=== PATIENT | male | born 1930 | race Caucasian/White ===

== ENCOUNTER 2017-07-26 13:38 | Inpatient (IN) | payer MEDICARE ==
[2017-07-26 14:57] LABS: #Lymphocytes 1.1 thou/uL (1.20-3.40); #Neutrophils 6.5 thou/uL (1.40-6.50); %Basophils 0.4 % (0.0-1.0); %Eosinophils 0.2 % (0.0-10.0); %Lymphocytes 12.5 % (21.0-51.0); %Monocytes 11.8 % (0.0-10.0); Hematocrit 39.3 % (42.0-52.0); Mean Platelet Volume 8.6 fL (7.4-10.4); Red Blood Cell (RBC) Count 4.11 mill/uL (4.70-6.10); White Blood Cell (WBC) Count 8.7 thou/uL (4.8-10.8)
[2017-07-26 15:09] LABS: ALT (SGPT) 11 U/L (8-55); AST (SGOT) 24 U/L (5-34); Alkaline Phosphatase 92 U/L (40-150); Anion Gap 15 mmol/L (10-20); BUN (Urea Nitrogen) 25 mg/dL (8.4-25.7); Bilirubin, Total 0.7 mg/dL (0.2-1.2); Calc. Creatinine Clearance 0 mL/min (70-130); Calcium 9.4 mg/dL (7.8-10.44); Carbon Dioxide 23 mmol/L (23-31); Chloride 94 mmol/L (98-107); Estimated GFR-MDRD 64; Globulin 3.4 g/dL (2.4-3.5); Protein, Total 7.1 g/dL (5.8-8.1)
[2017-07-26 15:14] LABS: Troponin I 0.112 ng/mL (< 0.028)
--- NOTE | 2017-07-26 15:22 | RAD ---
CHEST ONE VIEW: History: Dyspnea. Comparison: None. FINDINGS: The lungs are slightly hyperinflated. There are bilateral pleural effusions, larger on the left. Elev ated left hemidiaphragm. No pneumothorax. Heart size is enlarged. IMPRESSION: Layering effusions and mild cardiomegaly. POS: [facility]
[2017-07-26] MEDS ORDERED: Furosemide 40 MG/4 ML VIAL ONE (16:16)
[2017-07-26 16:56] LABS: Magnesium 1.7 mg/dL (1.6-2.6); Phosphorus 2.7 mg/dL (2.3-4.7)
[2017-07-26 18:29] LABS: Troponin I 0.174 ng/mL (< 0.028)
[2017-07-26] MEDS ORDERED: Ondansetron HCl/PF 4 MG/2 ML Vial IVP PRN ×2 (18:43→23:15)
[2017-07-26] MEDS ORDERED: Acetaminophen 325 MG TAB PO PRN ×2 (18:43→23:15)
[2017-07-26] MEDS ORDERED: Ondansetron ODT 4 MG TAB SL PRN (18:43)
--- NOTE | 2017-07-26 19:42 | ULT ---
BILATERAL LOWER EXTREMITY VENOUS DOPPLER 07/26/17 PROVIDED CLINICAL HISTORY: Lower extremity edema. FINDINGS: Lane scale and color doppler sonography with spectral analysis was performed of the bilateral common femoral, femoral, popliteal, posterior tibial, greater saphenous and profunda femoral veins, demonstr ating a normal sonographic appearance to each. Fluid collection within the left popliteal fossa measu ring about 4.9 cm is most compatible with a Jewell's cyst. IMPRESSION: No sonographic evidence for lower extremity deep venous thrombosis. POS: [facility]
[2017-07-26 19:56] VITALS: BMI 27.9
[2017-07-26 21:41] LABS: Troponin I 0.192 ng/mL (< 0.028)
[2017-07-26] MEDS ORDERED: Calcium Carbonate 500 MG ChewTAB PO PRN (23:15)
[2017-07-26] MEDS ORDERED: Senokot 8.6 MG TAB PO PRN (23:15)
[2017-07-26] MEDS ORDERED: Ondansetron ODT 4 MG TAB PO PRN (23:15)
[2017-07-26] MEDS ORDERED: Nitroglycerin 0.4 MG TAB (25 Tab Bottle) PO PRN (23:25)
[2017-07-27 05:48] LABS: Anion Gap 13 mmol/L (10-20); BUN (Urea Nitrogen) 21 mg/dL (8.4-25.7); Calc. Creatinine Clearance 60 mL/min (70-130); Calcium 9.4 mg/dL (7.8-10.44); Carbon Dioxide 29 mmol/L (23-31); Chloride 91 mmol/L (98-107); Estimated GFR-MDRD 67; Magnesium 1.7 mg/dL (1.6-2.6)
[2017-07-27 05:53] LABS: Troponin I 0.221 ng/mL (< 0.028)
[2017-07-27] MEDS: Furosemide 40 MG/4 ML VIAL SLOW IVP SCH ×2 (06:00→13:58)
[2017-07-27] MEDS: Sodium Chloride 0.9% 10 ML ONE ×2 (08:41→13:58)
[2017-07-27] MEDS: Docusate 100 MG CAP PO SCH ×2 (08:42→20:37)
[2017-07-27] MEDS: Gabapentin 300 MG CAP PO SCH ×2 (08:42→20:37)
[2017-07-27] MEDS: Carvedilol 3.125 MG TAB PO SCH ×2 (08:43→20:37)
--- NOTE | 2017-07-27 08:45 | HP ---
PRIMARY CARE PHYSICIAN: Dr. Heri De REASON FOR ADMISSION/CHIEF COMPLAINT: Sent by PCP for new onset congestive heart failure with fluid retention. CODE STATUS: FULL CODE. SURROGATE DECISION-MAKER: Patient makes his own decisions with the help of his family. Please note that patient was seen and examined on 07/26/2017 at 2330. HISTORY OF PRESENT ILLNESS: The patient is an 86-year-old male with hypertension who presented to [facility] emergency room from his primary care physician's office with the above complaints. The patient has gained approximately 15 pounds over the last 2 months or so. Over the last 2 weeks, he noticed wors ening bilateral lower extremity swelling. He had minimal exertional shortness of breath, without sig nificant orthopnea. He denies any chest pain, palpitations, lightheadedness, dizziness, recent immob ilization, travel, fever, chills or dyspepsia. He denies a recent cardiac workup. In the emergency room, his initial vital signs showed temperature 98.7, respirations 22, pulse of 100 , blood pressure of 113/74 with O2 saturation 92% on room air. His BNP was 2633 with troponins in [facility] indeterminate range at 0.174. He received 40 mg IV Lasix in the emergency room. His chest x-ray s howed layering effusions with mild cardiomegaly. EKG showed sinus tachycardia with first degree AV b lock and nonspecific ST-T wave changes and a right bundle branch block. PAST MEDICAL HISTORY: 1. Hypertension. 2. History of prostate cancer. 3. Degenerative joint disease. PAST SURGICAL HISTORY: 1. Prostatectomy in 1994. 2. Back surgery with spinal stimulator placement. 3. Bunionectomy. ALLERGIES: Patient is allergic to DEMEROL. CURRENT HOME MEDICATIONS: Amlodipine 10 mg daily, aspirin 81 mg daily, fluticasone daily, gabapentin 300 mg b.i.d., lisinopril/HCTZ 20/25 daily, naproxen 500 mg daily. SOCIAL HISTORY: Patient currently lives at home. He is a full code, makes his own decisions with [facility] help of his family. No smoking, alcohol or drug use reported. FAMILY HISTORY: Negative for premature coronary artery disease. REVIEW OF SYSTEMS: The following complete review of systems was negative, unless otherwise mentioned in the HPI or below: Constitutional: Weight loss or gain, ability to conduct usual activities. Skin: Rash, itching. Eyes: Double vision, pain. ENT/Mouth: Nose bleeding, neck stiffness, pain, tenderness. Cardiovascular: Palpitations, dyspnea on exertion, orthopnea. Respiratory: Shortness of breath, wheezing, cough, hemoptysis, fever or night sweats. Gastrointestinal: Poor appetite, abdominal pain, heartburn, nausea, vomiting, constipation, or diarrhea. Genitourinary: Urgency, frequency, dysuria, nocturia. Musculoskeletal: Pain, swelling. Neurologic/Psychiatric: Anxiety, depression. Allergy/Immunologic: Skin rash, bleeding tendency. PHYSICAL EXAMINATION: VITAL SIGNS: As discussed above. GENERAL: An 86-year-old male in no apparent distress. Denies any chest pain or shortness of breath while resting. HEENT: Head is atraumatic, normocephalic, sclerae are anicteric. Moist mucous membrane, no oral les ion. NECK: Supple, no JVD appreciated. No carotid bruit. LUNGS: Lungs were essentially clear to auscultation with minimal rales at bases. HEART: S1, S2 present. Regular rate and rhythm, 2/6 systolic murmur over the mitral area. No heave s or pulsation. ABDOMEN: Soft, nontender, bowel sounds present. EXTREMITIES: 3-4+ edema in bilateral lower extremities up to the knees. No calf tenderness. SKIN: Warm and dry. LYMPH NODES: No palpable lymph nodes in the neck. PERIPHERAL VASCULAR: Radial pulses palpable bilaterally. MUSCULOSKELETAL: No joint swelling or tenderness. SKIN: Warm and dry. LYMPH NODES: No palpable lymph nodes in the neck. LABORATORY FINDINGS: As discussed above. Sodium was 128 with potassium 3.8, chloride 94, bicarbonat e 23, BUN 25, creatinine 1.09, glucose 122. BNP was 2633 with troponin maximum of 0.174. TSH was no rmal. EKG and chest x-ray by my review as discussed above. Bilateral lower extremity Doppler was negative for DVT. IMPRESSION: 1. Bilateral lower extremity swelling with elevated troponin and BNP. These findings are consistent with new onset congestive heart failure exacerbation. 2. Elevated troponins, probably secondary to demand ischemia versus congestive heart failure. 3. Hypertension. 4. History of prostate cancer. 5. Degenerative joint disease on chronic nonsteroidal anti-inflammatory drugs. 6. Hyponatremia, probably secondary to volume overload as well as nonsteroidal anti-inflammatory quinten g use. 7. Chronic anemia. 8. Chronic kidney disease stage 2. 9. Chronic pain syndrome. PLAN: The patient will be monitored on the telemetry unit as inpatient. Echocardiogram will be obta ined. Cardiology will be consulted. Amlodipine and naproxen will be discontinued due to significant lower extremity swelling/volume overload. Fluid restriction. Plan of care was discussed with the patient in detail. He stated understanding. The patient will require 2-3 days for stabilization. Cardiac enzymes will be repeated in the morning . Electrolytes will be monitored on a daily basis.
[2017-07-27] MEDS ORDERED: Aspirin 81 mg Enteric Coated Tablet PO SCH (09:00)
[2017-07-27] MEDS ORDERED: Enoxaparin Sodium 40 MG/0.4 ML SYRINGE SC SCH (09:00)
[2017-07-27] MEDS: Fluticasone Propionate Nasal Spray 16 gm Bottle NASAL SCH (09:47)
[2017-07-27] MEDS: Lisinopril 5 MG TAB PO SCH ×2 (09:48→20:37)
[2017-07-27] MEDS ORDERED: Iopamidol 370 76% 100 ML VIAL ONE ×2 (11:15)
[2017-07-27] MEDS ORDERED: Heparin 10,000 UNITS/1 ML VIAL ONE (12:35)
[2017-07-27] MEDS ORDERED: Verapamil 5 MG/2 ML VIAL ONE (12:35)
[2017-07-27] MEDS ORDERED: Nitroglycerin 100MG/250ML BOT 0 ML ONE (12:35)
[2017-07-27] MEDS ORDERED: Communication Order-Pharmacy FS SCH (13:00)
[2017-07-27] MEDS ORDERED: Sodium Chloride 0.9% 10 ML ONE (13:56)
--- NOTE | 2017-07-27 14:23 | CON ---
DATE OF CONSULTATION: 07/27/2017 REASON FOR CONSULTATION: Heart failure. HISTORY OF PRESENT ILLNESS: Mr. Campa is a pleasant 86-year-old white gentleman, who comes to the [facility] for shortness of breath. He had noticed that he had gained about 15 pounds in the last 2 mon ths without any change in his eating habits and in the last 2 weeks, he notes worsening bilateral low er extremity swelling and shortness of breath when he lay flat, so he decided to come in for evaluati on. On initial workup, he was found to have very elevated BNP, chest x-ray looks clear, but he had s evere edema suggestive of heart failure. An echocardiogram was performed today. I reviewed it and i t shows severely reduced EF. On my evaluation, Mr. Campa denies any chest pain, tightness, or press ure. He admits to shortness of breath mostly when he lays flat, but his biggest concern is swelling from his abdomen down. He already has improved with IV Lasix and he has diuresed and he has lost abo ut 10 pounds already. PAST MEDICAL HISTORY: 1. Hypertension. 2. Prostate cancer. 3. DJD. PAST SURGICAL HISTORY: 1. Prostatectomy. 2. Back surgery and spine stimulator. 3. Bunionectomy. OUTPATIENT MEDICATIONS: 1. Amlodipine 10 mg a day. 2. Aspirin 81 daily. 3. Fluticasone. 4. Gabapentin. 5. Lisinopril/HCTZ 20/25 daily. 6. Naproxen daily. ALLERGIES: DEMEROL. SOCIAL HISTORY: No alcohol, tobacco, or drugs. FAMILY HISTORY: Noncontributory. REVIEW OF SYSTEMS: A 12-point review of systems was done and was negative unless stated in the histo ry of present illness. PHYSICAL EXAMINATION: VITAL SIGNS: Temperature 98.6, pulse 77, respiration rate 20, satting 93% on 2 liters, blood pressur e 100/61. GENERAL: Awake, alert, oriented x3, in no distress. HEENT: Normocephalic, atraumatic. NECK: Supple. LUNGS: Clear. CARDIOVASCULAR: S1 and S2. No S3 or S4. No murmurs or rubs. ABDOMEN: Soft, positive bowel sounds. EXTREMITIES: 3+ edema. SKIN: Warm and dry. LABORATORY WORK: Reviewed. White count of 8.7, hemoglobin 13.1, hematocrit 39, platelet count of 22 7. Chemistries with a sodium of 128 on admission, up to 129. BUN and creatinine normal with GFR of 67. Troponin was 0.17, 0.19, 0.22. Albumin of 3.5. TSH was normal at 0.72 on the lower limits of n ormal. BNP was 2633. Echocardiogram reviewed as above. ASSESSMENT: 1. Severe new onset cardiomyopathy: High concern for ischemic cardiomyopathy given his akinetic ape x and regional motion abnormalities. 2. History of hypertension. PLAN: 1. I agree with beta rosie and LLOYD inhibitor at this time. Continue IV diuresis with 40 IV b.i.d. of Lasix as he is diuresed well with this. 2. We will plan on doing a left heart catheterization on him later today. He is able to lay flat co mfortably. He is feeling better with diuresis. We will most likely need some sort of vascularizatio ns as I think this is ischemic in nature. I spoke with him about the risks and benefits of the proce dure. The risks include, but not limited to stroke, PA, , bleeding and need for blood transfusi ons, vessel injury, need for vessel repair, need for emergency bypass surgery. The patient understan ds and verbalizes understanding of this and agrees to proceed. We have spoken about contrast nephrop athy and allergic reactions. He agrees to proceed. Further recommendations per results of coronary angiogram. Thank you for letting us participate in the care of your patient. We will follow.
--- NOTE | 2017-07-27 19:12 | PDOC.PN ---
- Subjective Encounter Start Date: 07/27/17 Encounter Start Time: 16:00 Patient seen and examined. No new complaints. No overnight events. s/p Cath. No SOB. Leg swelling improving. - Objective Resuscitation Status: Resuscitation Status FULL:Full Resuscitation MAR Reviewed: Yes Vital Signs & Weight: Vital Signs (12 hours) Temp Pulse Pulse Pulse Resp BP BP 07/27/17 15:00 97.5 F L 69 16 07/27/17 13:49 72 18 07/27/17 12:00 66 75 135/72 07/27/17 11:08 98.6 F 77 20 07/27/17 09:48 79 101/67 07/27/17 08:37 98.7 F 73 17 BP BP Pulse Ox Pulse Ox Pulse Ox 07/27/17 15:00 112/72 97 07/27/17 13:49 111/68 95 07/27/17 12:00 104/63 95 95 07/27/17 11:08 100/61 93 L 07/27/17 09:48 07/27/17 08:37 90/55 L 95 Weight Weight 178 lb 5.663 oz I&O: 07/26/17 07/27/17 07/28/17 06:59 06:59 06:59 Intake Total 240 880 Output Total 1275 2200 Balance -1035 -1320 Result Diagrams: 07/26/17 14:40 07/28/17 04:29 Radiology Reviewed by me: No (Echo - EF 20% range) EKG Reviewed by me: Yes (Tele SR) Phys Exam - Physical Examination Constitutional: NAD Respiratory: no wheezing, no rales, no rhonchi symmetrical Cardiovascular: RRR, no rub no heaves/pulsations Gastrointestinal: soft, non-tender, no distention, positive bowel sounds Musculoskeletal: edema present Neurological: non-focal, moves all 4 limbs Psychiatric: normal affect, A&O x 3 Dx/Plan - Plan DVT proph w/lovenox, DVT proph w/SCDs IMPRESSION: 1. New onset systolic congestive heart failure exacerbation. 2. Elevated troponins, probably secondary to demand ischemia versus congestive heart failure. 3. Severe CAD 4. Hypertension. 5. Degenerative joint disease on chronic nonsteroidal anti-inflammatory drugs. 6. Hyponatremia, probably secondary to volume overload as well as nonsteroidal anti-inflammatory drug use. 7. Chronic anemia/Chronic kidney disease stage 2/History of prostate cancer/ Chronic pain syndrome. PLAN: * Cont diuresis - Change IV Lasix dose to 20 mg BID * AM labs * s/p Cath * Cardiology following * Change ASA to 325 mg/d * Cont other meds as below Review of Systems - Medications/Allergies Allergies/Adverse Reactions: Allergies Allergy/AdvReac Type Severity Reaction Status Date / Time meperidine HCl [From Demerol] AdvReac Verified 05/18/16 10:51 Medications: Current Medications Acetaminophen (Tylenol) 650 mg PO Q4H PRN PRN Reason: Headache/Fever or Pain Aspirin (Ecotrin) 81 mg PO DAILY [facility] Last Admin: 07/27/17 08:41 Dose: 81 mg Calcium Carbonate (Tums) 1,000 mg PO Q4H PRN PRN Reason: Heartburn or Indigestion Carvedilol (Coreg) 3.125 mg PO BID [facility] Last Admin: 07/27/17 08:43 Dose: 3.125 mg Docusate Sodium (Colace) 100 mg PO BID [facility] Last Admin: 07/27/17 08:42 Dose: 100 mg Enoxaparin Sodium (Lovenox) 40 mg SC 0900 [facility] Fluticasone Propionate (Flonase Nasal [place]) 0 gm NASAL DAILY [facility] Last Admin: 07/27/17 09:47 Dose: 2 spray Furosemide (Lasix) 40 mg SLOW IVP 0600,1400 [facility] Last Admin: 07/27/17 13:58 Dose: 40 mg Gabapentin (Neurontin) 300 mg PO BID [facility] Last Admin: 07/27/17 08:42 Dose: 300 mg Lisinopril (Zestril) 5 mg PO BID [facility] Last Admin: 07/27/17 09:48 Dose: 5 mg Miscellaneous Information (Communication Order-Pharmacy) 0 each FS ONE [facility] Stop: 07/27/17 23:59 Nitroglycerin (Nitrostat) 0.4 mg PO Q5MIN PRN PRN Reason: Chest Pain Ondansetron HCl (Zofran Odt) 4 mg PO Q6H PRN PRN Reason: Nausea/Vomiting Ondansetron HCl (Zofran) 4 mg IVP Q6H PRN PRN Reason: Nausea/Vomiting Senna (Senokot) 2 tab PO HSPRN PRN PRN Reason: Constipation
[2017-07-28 05:39] LABS: Anion Gap 13 mmol/L (10-20); BUN (Urea Nitrogen) 21 mg/dL (8.4-25.7); BUN/Creatinine Ratio 18.92; Calc. Creatinine Clearance 57 mL/min (70-130); Calcium 8.8 mg/dL (7.8-10.44); Carbon Dioxide 29 mmol/L (23-31); Chloride 90 mmol/L (98-107); Estimated GFR-MDRD 63; Magnesium 1.4 mg/dL (1.6-2.6); Phosphorus 3.2 mg/dL (2.3-4.7)
[2017-07-28] MEDS: Furosemide 20 MG/2 ML VIAL SLOW IVP SCH ×2 (06:07→14:16)
[2017-07-28] MEDS: Potassium Chloride 20 MEQ TAB PO SCH ×2 (06:07→09:11)
[2017-07-28] MEDS: Sodium Chloride 0.9% 10 ML ONE (06:08)
[2017-07-28] MEDS: Gabapentin 300 MG CAP PO SCH ×2 (09:00→21:22)
[2017-07-28] MEDS: Aspirin 325 mg Enteric Coated Tablet PO SCH (09:00)
[2017-07-28] MEDS: Carvedilol 3.125 MG TAB PO SCH ×2 (09:03→21:22)
[2017-07-28] MEDS: Enoxaparin Sodium 40 MG/0.4 ML SYRINGE SC SCH (09:03)
[2017-07-28] MEDS: Lisinopril 5 MG TAB PO SCH (09:03)
[2017-07-28] MEDS: Docusate 100 MG CAP PO SCH ×2 (09:03→21:22)
[2017-07-28] MEDS: Fluticasone Propionate Nasal Spray 16 gm Bottle NASAL SCH (09:04)
--- NOTE | 2017-07-28 11:17 | PDOC.PN ---
- Subjective Encounter Start Date: 07/28/17 Encounter Start Time: 11:15 Patient seen and examined. No new complaints. No overnight events. Leg swelling improving - Objective Resuscitation Status: Resuscitation Status FULL:Full Resuscitation MAR Reviewed: Yes Vital Signs & Weight: Vital Signs (12 hours) Temp Pulse Resp BP Pulse Ox 07/28/17 07:36 98.6 F 80 19 117/74 94 L 07/28/17 03:40 98.1 F 77 16 122/65 94 L Weight Weight 179 lb 8 oz I&O: 07/27/17 07/28/17 07/29/17 06:59 06:59 06:59 Intake Total 240 1340 Output Total 1275 2900 Balance -1035 -1560 Result Diagrams: 07/26/17 14:40 07/28/17 04:29 EKG Reviewed by me: Yes (Tele SR) Phys Exam - Physical Examination Constitutional: NAD Respiratory: no wheezing, no rhonchi Cardiovascular: RRR, no rub Gastrointestinal: soft, non-tender, positive bowel sounds (improving) Musculoskeletal: edema present Neurological: moves all 4 limbs Dx/Plan - Plan DVT proph w/lovenox, DVT proph w/SCDs IMPRESSION: 1. New onset systolic congestive heart failure exacerbation. 2. Elevated troponins, probably secondary to demand ischemia versus congestive heart failure. 3. Severe CAD 4. Hypertension. 5. Hyponatremia/Hypokalemia/Hypomagnsemia 6. Chronic anemia/Chronic kidney disease stage 2/History of prostate cancer/ Chronic pain syndrome/Degenerative joint disease PLAN: * Replace electrolytes * Cont diuresis - Change IV Lasix dose to 20 mg BID * AM labs * Huseyin joe in AM * Cardiology following * Change ASA to 325 mg/d * Cont other meds as below Review of Systems - Review of Systems Respiratory: negative: Cough, Dry, Shortness of Breath, Hemoptysis, SOB with Excertion, Pleuritic Pain, Sputum, Wheezing Gastrointestinal: negative: Nausea, Vomiting, Abdominal Pain, Diarrhea, Constipation, Melena, Hematochezia, Other - Medications/Allergies Allergies/Adverse Reactions: Allergies Allergy/AdvReac Type Severity Reaction Status Date / Time meperidine HCl [From Demerol] AdvReac Verified 05/18/16 10:51 Medications: Current Medications Acetaminophen (Tylenol) 650 mg PO Q4H PRN PRN Reason: Headache/Fever or Pain Aspirin (Ecotrin) 325 mg PO DAILY [facility] Last Admin: 07/28/17 09:00 Dose: 325 mg Calcium Carbonate (Tums) 1,000 mg PO Q4H PRN PRN Reason: Heartburn or Indigestion Carvedilol (Coreg) 3.125 mg PO BID [facility] Last Admin: 07/28/17 09:03 Dose: 3.125 mg Docusate Sodium (Colace) 100 mg PO BID [facility] Last Admin: 07/28/17 09:03 Dose: 100 mg Enoxaparin Sodium (Lovenox) 40 mg SC 0900 [facility] Last Admin: 07/28/17 09:03 Dose: 40 mg Fluticasone Propionate (Flonase Nasal [place]) 0 gm NASAL DAILY [facility] Last Admin: 07/28/17 09:04 Dose: 2 spray Furosemide (Lasix) 20 mg SLOW IVP 0600,1400 [facility] Last Admin: 07/28/17 06:07 Dose: 20 mg Gabapentin (Neurontin) 300 mg PO BID [facility] Last Admin: 07/28/17 09:00 Dose: 300 mg Lisinopril (Zestril) 5 mg PO BID [facility] Last Admin: 07/28/17 09:03 Dose: 5 mg Nitroglycerin (Nitrostat) 0.4 mg PO Q5MIN PRN PRN Reason: Chest Pain Ondansetron HCl (Zofran Odt) 4 mg PO Q6H PRN PRN Reason: Nausea/Vomiting Ondansetron HCl (Zofran) 4 mg IVP Q6H PRN PRN Reason: Nausea/Vomiting Senna (Senokot) 2 tab PO HSPRN PRN PRN Reason: Constipation
[2017-07-28] MEDS ORDERED: Magnesium Sulfate 4 GM in Sodium Chloride 0.9% 250 ML 250 ML IVPB SCH (11:30)
--- NOTE | 2017-07-28 13:32 | PDOC.CTH ---
Cardiology Progress Note - Subjective He is doing well. He denies any chest pain, tightness ,pressure, his breathing has improved. - Objective Vital Signs Temp Pulse Resp BP Pulse Ox 07/28/17 12:00 98.3 F 78 22 H 105/57 L 92 L 07/28/17 07:36 98.6 F 80 19 117/74 94 L 07/28/17 03:40 98.1 F 77 16 122/65 94 L Weight 179 lb 8 oz 07/27/17 07/28/17 07/29/17 06:59 06:59 06:59 Intake Total 240 1340 Output Total 1275 2900 Balance -1035 -1560 - Physical Examination General/Neuro: alert & oriented x3, NAD Neck: no JVD present Lungs: CTA, unlabored respirations Heart: RRR Abdomen: NT/ND Extremities: + edema B (trace) - Telemetry Telemetry Rhythm: NSR - Labs Result Diagrams: 07/26/17 14:40 07/28/17 04:29 Troponin/CKMB CK-MB (CK-2) 2.5 ng/mL (0-6.6) 07/26/17 14:40 Troponin I 0.221 ng/mL (< 0.028) H 07/27/17 04:36 - Assessment/Plan 1. Severe Ischemic Cardiomyopathy 2. Dilated cardiomyopathy 3. Severe multivessel CAD. 4. LVEF at 15% PLAN: - We had a long conversation with him and his . - I reviewed his films with Dr. Maria and his LAD has several severely diseased areas that would make that vessel not amenable to bypass. His OM and RCA may be bypassed. Given his severe CM and having what appears to be a scar on his apex and anterior wall I would not think he is a good candidate for bypass surgery. His RCA is occluded and his LAD and LCx are both subtotalled and stenting would be high risk and would require Impella support and he is not interested in this either. I think his best option would be medical therapy for his CAD and CM. Both him and his are present and they both understand and verbalize understanding of this. - Will also recommend he be discharge on a lifevest. Ordered placed in [facility]. - Continue BB and ACEI. - Continue IV lasix - Replace K. - Will follow. - Once discharged will need follow up with me in 2 weeks.
[2017-07-28] MEDS: Potassium Chloride 10 MEQ TAB PO SCH (17:54)
[2017-07-28] MEDS ORDERED: Atorvastatin Calcium 40 MG TAB PO SCH (21:00)
[2017-07-29 05:30] LABS: Anion Gap 11 mmol/L (10-20); BUN (Urea Nitrogen) 21 mg/dL (8.4-25.7); BUN/Creatinine Ratio 19.27; Calc. Creatinine Clearance 57 mL/min (70-130); Calcium 8.9 mg/dL (7.8-10.44); Carbon Dioxide 29 mmol/L (23-31); Chloride 92 mmol/L (98-107); Cholesterol 129 mg/dl (< 200 Desired); Estimated GFR-MDRD 64; LDL Cholesterol, Calculated 86 mg/dL; Magnesium 2.4 mg/dL (1.6-2.6); Phosphorus 2.5 mg/dL (2.3-4.7)
[2017-07-29] MEDS: Furosemide 20 MG/2 ML VIAL SLOW IVP SCH ×2 (05:44→14:24)
[2017-07-29] MEDS: Potassium Chloride 10 MEQ TAB PO SCH (08:36)
[2017-07-29] MEDS: Carvedilol 3.125 MG TAB PO SCH (08:38)
[2017-07-29] MEDS: Gabapentin 300 MG CAP PO SCH (08:38)
[2017-07-29] MEDS: Aspirin 325 mg Enteric Coated Tablet PO SCH (08:39)
[2017-07-29] MEDS: Docusate 100 MG CAP PO SCH (08:39)
[2017-07-29] MEDS: Enoxaparin Sodium 40 MG/0.4 ML SYRINGE SC SCH (08:39)
[2017-07-29] MEDS: Fluticasone Propionate Nasal Spray 16 gm Bottle NASAL SCH (08:40)
[2017-07-29] MEDS ORDERED: Lisinopril 2.5 MG TAB PO SCH (09:00)
[2017-07-29] MEDS: Potassium Chloride 20 MEQ TAB PO SCH ×2 (12:46→18:39)
[2017-07-29 17:49] VITALS: BP 120/69; TEMP 97.9
--- NOTE | 2017-07-30 09:46 | DIS ---
DATE OF DISCHARGE: 07/29/2017 DISCHARGE DISPOSITION: Home. FOLLOWUP: Follow up with primary care physician, Dr. Heri De in 1 week. Follow up with Card iology, Dr. Castillo as scheduled. BMP in 3 days is recommended. Primary care physician had advised to follow. ALLERGIES: The patient is allergic to DEMEROL. LifeVest has been arranged. The patient was seen and examined on the day of discharge and denies any chest discomfort or shortnes s of breath. He was extensively counseled on heart failure. BRIEF HOSPITAL COURSE: The patient is an 86-year-old male with hypertension who [facility] from his primary care physician's office with bilateral lower extremity swelling. He had gaine d approximately 15 pounds over the past 2 months or so. Please refer to the history and physical kierra ed 07/26/2017 for further details. The patient was admitted to the hospital with a diagnosis of new onset congestive heart failure exace rbation. His BNP on admission was 2600 with indeterminate troponins. He was started on Lasix with g ood improvement in his symptoms. His weight on the day of discharge is 175 pounds with a maximum desmond ght of 179 pounds this hospitalization. The patient was evaluated by Cardiology, Dr. Castillo. Echoca rdiogram showed ejection fraction 15%-20% with grade I of III diastolic dysfunction with severe globa l hypokinesis, moderate mitral regurgitation and severely elevated pulmonary artery pressure estimate d at 75 mmHg. A cardiac catheterization was performed that showed severe multivessel disease with ej ection fraction of 10%-15%. Dr. Castillo had extensive discussion with the patient and the family. Dr Terra Castillo also reviewed the catheter films with Cardiothoracic, Dr. Maria. Dr. Castillo does not think that he is a good candidate for bypass surgery. LifeVest has been arranged. He has been extensively counseled on heart failure. His medications have been optimized by Cardiology. He will need lab wo rk in 3 days as well as after 1 week. Primary care physician is advised to follow. Heart Failure Cl inic is also recommended. Plan of care was discussed with the patient in detail. The patient and the family stated understandi ng. FINAL DIAGNOSES: 1. New onset congestive heart failure, acute on chronic, systolic and diastolic. 2. Elevated troponin secondary to demand ischemia. 3. Severe coronary artery disease. 4. Hypertension. 5. Hypokalemia. Lowest potassium was 2.8. 6. Hypomagnesemia, lowest magnesium was 1.4. 7. Hyponatremia. His sodium on the day of discharge is 129. 8. Chronic anemia. 9. Chronic kidney disease stage 2. 10. History of prostate cancer. 11. Chronic pain syndrome. 12. Degenerative joint disease. DISCHARGE MEDICATIONS: 1. Aspirin 325 mg daily. 2. Lipitor 40 mg at bedtime. 3. Carvedilol 3.125 mg b.i.d. 4. Flonase nasal spray daily. 5. Lasix 20 mg twice a day. 6. Gabapentin 300 mg b.i.d. 7. Lisinopril 2.5 mg daily. 8. Sublingual nitroglycerin as needed. 9. Potassium chloride 20 mEq daily. Total time coordinating the discharge of this patient was 38 minutes.
== END 2017-07-29 20:14 | disposition home or self-care (01) | DRG 286 ==
LOC: ERS 13:38 → 2NO 16:49
PROVIDERS: ADMIT Internal Medicine; ATTEND Internal Medicine
PROC: 4A023N7 Measurement of Cardiac Sampling and Pressure, Left Heart, Percutaneous Approach (ICD-10-PCS; principal; 2017-07-27)
PROC: B2111ZZ Fluoroscopy of Multiple Coronary Arteries using Low Osmolar Contrast (ICD-10-PCS; 2017-07-27)
PROC: B2151ZZ Fluoroscopy of Left Heart using Low Osmolar Contrast (ICD-10-PCS; 2017-07-27)
DX: I13.0 Hypertensive heart and chronic kidney disease with heart failure and stage 1 through stage 4 chronic kidney disease, or unspecified chronic kidney disease (principal); I50.43 Acute on chronic combined systolic (congestive) and diastolic (congestive) heart failure; I24.8 Other forms of acute ischemic heart disease; E83.42 Hypomagnesemia; I25.5 Ischemic cardiomyopathy; D63.1 Anemia in chronic kidney disease; E87.1 Hypo-osmolality and hyponatremia; I34.0 Nonrheumatic mitral (valve) insufficiency; Z85.46 Personal history of malignant neoplasm of prostate; Z88.5 Allergy status to narcotic agent; Z79.1 Long term (current) use of non-steroidal anti-inflammatories (NSAID); Z79.82 Long term (current) use of aspirin; G89.4 Chronic pain syndrome; I25.10 Atherosclerotic heart disease of native coronary artery without angina pectoris; N18.2 Chronic kidney disease, stage 2 (mild); E87.6 Hypokalemia; Z90.79 Acquired absence of other genital organ(s); I44.0 Atrioventricular block, first degree; I45.10 Unspecified right bundle-branch block
CPT/HCPCS: 36415; 71010; 80053; 80061; 80069; 82553; 83735; 83880; 84100; 84443; 84484; 85025; 93005; 93306; 93458; 93567; 93798; 93970; 94760; 96374; A4216; C1769; J1644; J1650; J1940; J3475; J7050

== ENCOUNTER 2017-08-11 09:17 | Inpatient (IN) | payer MEDICARE ==
[2017-08-11 10:06] LABS: #Monocytes 1.2 thou/uL (0.11-0.59); #Neutrophils 8.7 thou/uL (1.40-6.50); %Basophils 0.2 % (0.0-1.0); %Eosinophils 0.3 % (0.0-10.0); %Lymphocytes 9.3 % (21.0-51.0); %Neutrophils 79.2 % (42.0-75.0); Hemoglobin 12.3 g/dL (14.0-18.0); Mean Corpuscular HGB CONC 33.3 g/dL (32.0-36.0); Mean Platelet Volume 8.8 fL (7.4-10.4); Platelet Count 243 thou/uL (130-400); Red Blood Cell (RBC) Count 3.85 mill/uL (4.70-6.10)
--- NOTE | 2017-08-11 10:20 | RAD ---
FRONTAL VIEW CHEST: Comparison: 07-26-17 Indication: Dyspnea. FINDINGS: The left hemidiaphragm is elevated. There is enlargement of the cardiac silhouette. Mild interstitial prominence of each lung is present without evidence of consolidation. IMPRESSION: 1. Elevation of the left hemidiaphragm, stable appearing. 2. Stable prominence of the cardiac silhouette which may be on the basis of CHF. Correlate clinically . POS: [facility]
[2017-08-11 10:28] LABS: ALT (SGPT) 20 U/L (8-55); AST (SGOT) 39 U/L (5-34); Albumin 3.2 g/dL (3.4-4.8); Alkaline Phosphatase 76 U/L (40-150); Anion Gap 16 mmol/L (10-20); BUN (Urea Nitrogen) 38 mg/dL (8.4-25.7); Bilirubin, Total 0.9 mg/dL (0.2-1.2); CK (CPK) 85 U/L (30-200); Calc. Creatinine Clearance 0 mL/min (70-130); Calcium 9.8 mg/dL (7.8-10.44); Carbon Dioxide 22 mmol/L (23-31); Chloride 97 mmol/L (98-107); Estimated GFR-MDRD 55; Globulin 3.6 g/dL (2.4-3.5); Glucose 130 mg/dL (83-110); Lipase 11 U/L (8-78); Potassium 4.4 mmol/L (3.5-5.1); Protein, Total 6.8 g/dL (5.8-8.1); Sodium 131 mmol/L (136-145)
[2017-08-11 10:32] LABS: CKMB 2.6 ng/mL (0-6.6)
[2017-08-11 10:39] LABS: Troponin I 1.766 ng/mL (< 0.028)
[2017-08-11] MEDS ORDERED: Enoxaparin Sodium 80 MG/0.8 ML SYRINGE ONE (11:53)
[2017-08-11 13:01] LABS: Bilirubin Small (Negative); Blood, Urine Trace (Negative); Glucose, Urine (Dipstick) Negative (Negative); Leukocyte Trace (Negative); Nitrite Negative (Negative); Protein, Urine (Dipstick) Negative (Neg-Trace); Specific Gravity, Urine 1.025 (1.005-1.030); pH, Urine 5.5 (5.0-9.0)
[2017-08-11 13:04] LABS: Clarity HAZY (Clear)
[2017-08-11 13:10] LABS: Bacteria/HPF Rare-Few HPF (None Seen); Hyaline Casts/LPF NONE SEEN LPF (0-3 Hyaline); RBC/HPF 0-3 HPF (0-3)
[2017-08-11 14:31] LABS: Troponin I 1.812 ng/mL (< 0.028)
[2017-08-11] MEDS ORDERED: Nitroglycerin 0.4 MG TAB (25 Tab Bottle) PO PRN (15:08)
--- NOTE | 2017-08-11 16:20 | ULT ---
ULTRASOUND WITH DOPPLER DUPLEX VENOUS LOWER EXTREMITY BILATERAL 08/11/17 CPT: 61438 ICD-10-PCS: B54D HISTORY: Pain and edema. Immobilization. 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 FINDINGS: Appropriate compressibility and flow within the imaged deep vein system of each lower extremity. There is a focus of altered echotexture within the left popliteal fossa indicating a Jewell cyst, mild ly complex in echotexture. IMPRESSION: 1. No DVT. 2. Jewell's cyst, slightly complex in echogenicity, within the popliteal fossa. 3. Soft tissue edema. Correlate clinically. POS: [facility]
[2017-08-11 17:02] LABS: Troponin I 1.972 ng/mL (< 0.028)
[2017-08-11] MEDS ORDERED: Ondansetron HCl/PF 4 MG/2 ML Vial IVP PRN (19:05)
[2017-08-11] MEDS ORDERED: Ondansetron ODT 4 MG TAB PO PRN (19:05)
[2017-08-11] MEDS ORDERED: Senokot 8.6 MG TAB PO PRN (19:05)
[2017-08-11] MEDS ORDERED: Acetaminophen 325 MG TAB PO PRN (19:05)
[2017-08-11] MEDS ORDERED: Bisacodyl 10 MG SUPP PR PRN (19:05)
[2017-08-11] MEDS ORDERED: Diabetic Tussin 200 MG/10 ML UDCUP PO PRN (19:09)
[2017-08-11] MEDS ORDERED: Eucerin (Mineral Oil/Petrolatum,White) 30 gm Jar TOP PRN (19:09)
[2017-08-11] MEDS ORDERED: Loratadine 10 MG TAB PO PRN (19:09)
[2017-08-11] MEDS ORDERED: Polyethylene Glycol 3350 17 GM Packet PO PRN (19:09)
[2017-08-11] MEDS ORDERED: hydrALAZINE 20 MG/ML VIAL SLOW IVP PRN (19:09)
--- NOTE | 2017-08-11 19:52 | HP ---
DATE OF ADMISSION: 08/11/2017 PRIMARY CARE PHYSICIAN: Heri De D.O. PRIMARY CHIEF INVESTIGATOR: Wale Castillo MD CHIEF COMPLAINT: Generalized weakness. CODE STATUS: FULL CODE. SURROGATE DECISION MAKER: The patient makes his own decisions with the help of his spouse. HISTORY OF PRESENT ILLNESS: The patient is an 86-year-old male, who was discharged from this facility approximately 2 weeks ago. He was diagnosed with new onset congestive heart failure, systolic and diastolic type with severe coronary artery disease. LifeVest was also arranged. Medical therapy was recommended. The patient was not a candidate for coronary artery bypass grafting. Post-discharge, the patient has been progressively getting weaker. Over the last 1 week or so, the patient has been spending most of his time on the recliner. He is unable to do his basic activities of daily living. No chest pain, palpitations, lightheadedness, dizziness, or syncope reported. In the emergency room, his initial vital signs showed temperature 98.1, respirations 20, pulse rate of 97, blood pressure 109/81 with O2 saturation 96% on room air. His initial troponin was 1.76 with a CK-MB of 2.6. BNP was 3192. He received aspirin with one dose of 1 mg/kg of Lovenox. PAST MEDICAL HISTORY: 1. Recent diagnosis of systolic and diastolic heart failure. 2. Severe coronary artery disease on medical management with the last cardiac catheterization in 07/23/2017. 3. Hypertension. 4. Chronic anemia. 5. Chronic kidney disease, stage 2. 6. History of prostate cancer. 7. Chronic pain syndrome. 8. Degenerative joint disease. PAST SURGICAL HISTORY: 1. Cardiac catheterization in last month. 2. Prostatectomy in 1994. 3. Back surgery with spinal stimulator placement. 4. Bunionectomy. ALLERGIES: Patient is allergic to DEMEROL. CURRENT HOME MEDICATIONS: Patient is unable to recall any of his home medications. He was discharged on following medications 2 weeks ago. 1. Aspirin 325 mg daily. 2. Lipitor 40 mg daily. 3. Carvedilol 3.125 mg b.i.d. 4. Flonase daily 5. Lasix 20 mg b.i.d. 6. Potassium chloride 20 mEq daily, 7. Lisinopril 2.5 mg daily. 8. Gabapentin 300 mg b.i.d. 9. Sublingual nitroglycerin as needed. SOCIAL HISTORY: Patient currently lives at home. No smoking, alcohol or drug use. Spouse is at the bedside. FAMILY HISTORY: Negative for premature coronary artery disease. REVIEW OF SYSTEMS: The following complete review of systems was negative, unless otherwise mentioned in the HPI or below: Constitutional: Weight loss or gain, ability to conduct usual activities. Skin: Rash, itching. Eyes: Double vision, pain. ENT/Mouth: Nose bleeding, neck stiffness, pain, tenderness. Cardiovascular: Palpitations, dyspnea on exertion, orthopnea. Respiratory: Shortness of breath, wheezing, cough, hemoptysis, fever or night sweats. Gastrointestinal: Poor appetite, abdominal pain, heartburn, nausea, vomiting, constipation, or diarrhea. Genitourinary: Urgency, frequency, dysuria, nocturia. Musculoskeletal: Pain, swelling. Neurologic/Psychiatric: Anxiety, depression. Allergy/Immunologic: Skin rash, bleeding tendency. PHYSICAL EXAMINATION: VITAL SIGNS: As discussed above. GENERAL: An 86-year-old male with generalized weakness. HEENT: Head is atraumatic, normocephalic. Sclerae anicteric. Moist mucous membranes. No oral lesion. NECK: Supple, no JVD appreciated. No carotid bruit. LUNGS: Essentially clear to auscultation with scattered coarse breath sounds bilaterally. Lungs were symmetrical. Trachea was in midline. HEART: S1 and S2 present. Regular rate and rhythm, 2/6 systolic murmur over the mitral area. LifeVest in place. ABDOMEN: Soft, nontender, bowel sounds present. EXTREMITIES: No calf tenderness. There is 3+ edema in bilateral lower extremities. SKIN: Warm and dry. LYMPH NODES: No palpable lymph nodes in the neck. PERIPHERAL VASCULAR: Radial pulses palpable bilaterally. MUSCULOSKELETAL: No joint swelling or tenderness. SKIN: Warm and dry. LABORATORY FINDINGS: CBC showed WBC 11 with hemoglobin 12.3, hematocrit 37 with platelet count of 243, neutrophils 79.2%. Chemistries showed sodium 131, potassium 4.4, chloride 97, bicarbonate 22, BUN 38, creatinine 1.25, glucose 130 Troponins as discussed above. EKG by my review showed sinus rhythm with first degree AV block and right bundle branch block. Chest x-ray by my review was negative for infiltrate or edema. IMPRESSION: 1. Generalized weakness, multifactorial. 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 2. Non-ST elevation myocardial infarction. 3. Chronic systolic/diastolic heart failure/Bilateral lower extremity swelling , probably secondary to venous stasis. Patient has been spending most of his time on the recliner. 4. Hypertension. The patient was hypotensive in the emergency room. 5. Degenerative joint disease. 6. Dehydration, probably secondary to diuretics and poor appetite. 7. Mild leukocytosis with left shift, unlikely to be infectious. 8. Elevated BNP, probably secondary to chronic congestive heart failure. 9. Hyponatremia, probably secondary to diuretics. 10. Chronic kidney disease stage 2. 11. Chronic pain syndrome. 12. History of prostate cancer. 13. Chronic anemia. PLAN: The patient will be monitored on the telemetry unit. He received a dose of Lovenox in the emergency room. We will consult Cardiology, Dr. Bill Matthews , who is covering for Dr. Wale Castillo this weekend. We will hold diuretics for now. We will resume other home medications including low dose lisinopril and beta blockers. We will hold statins due to possible statin myopathy. Consult physical therapy, occupation therapy. We will also evaluate for inpatient rehabilitation versus fpc for discharge. Plan of care was discussed with the patient and the family in detail and they stated understanding. SUZID
[2017-08-11 21:19] VITALS: BMI 29.0
[2017-08-11] MEDS: Gabapentin 300 MG CAP PO SCH (21:29)
[2017-08-11] MEDS: Ubidecarenone 50 MG CAP PO SCH (21:30)
[2017-08-11] MEDS: Docusate 100 MG CAP PO SCH (21:30)
[2017-08-11] MEDS: Carvedilol 3.125 MG TAB PO SCH (21:31)
[2017-08-11] MEDS: Famotidine 20 MG TAB PO SCH (21:31)
[2017-08-11] MEDS: Enoxaparin Sodium 40 MG/0.4 ML SYRINGE SC SCH (21:31)
[2017-08-11] MEDS ORDERED: Furosemide 20 MG/2 ML VIAL SLOW IVP SCH (23:45)
[2017-08-12 05:46] LABS: #Lymphocytes 0.9 thou/uL (1.20-3.40); #Monocytes 0.8 thou/uL (0.11-0.59); #Neutrophils 6.3 thou/uL (1.40-6.50); %Basophils 0.4 % (0.0-1.0); %Eosinophils 0.6 % (0.0-10.0); %Lymphocytes 10.8 % (21.0-51.0); %Monocytes 10.4 % (0.0-10.0); %Neutrophils 77.9 % (42.0-75.0); Hemoglobin 11.9 g/dL (14.0-18.0); Mean Corpuscular HGB CONC 32.7 g/dL (32.0-36.0); Mean Corpuscular Hemoglobin 31.3 pg (27.0-31.0); Mean Corpuscular Volume 95.9 fl (80.0-94.0); Mean Platelet Volume 9.3 fL (7.4-10.4); Platelet Count 250 thou/uL (130-400); RBC Distribution Width 11.9 % (11.5-14.5); Red Blood Cell (RBC) Count 3.78 mill/uL (4.70-6.10); White Blood Cell (WBC) Count 8.1 thou/uL (4.8-10.8)
[2017-08-12 06:07] LABS: Albumin 3.2 g/dL (3.4-4.8); Anion Gap 16 mmol/L (10-20); BUN (Urea Nitrogen) 43 mg/dL (8.4-25.7); BUN/Creatinine Ratio 34.68; Calc. Creatinine Clearance 52 mL/min (70-130); Calcium 9.6 mg/dL (7.8-10.44); Carbon Dioxide 23 mmol/L (23-31); Chloride 97 mmol/L (98-107); Estimated GFR-MDRD 56; Glucose 107 mg/dL (83-110); Magnesium 1.9 mg/dL (1.6-2.6); Phosphorus 4.2 mg/dL (2.3-4.7); Potassium 4.1 mmol/L (3.5-5.1); Sodium 132 mmol/L (136-145)
[2017-08-12 06:20] LABS: Critical Call Chem Troponin I RESULT DECREASING; Troponin I 1.449 ng/mL (< 0.028)
[2017-08-12] MEDS: Gabapentin 300 MG CAP PO SCH ×2 (09:14→20:20)
[2017-08-12] MEDS: Lisinopril 2.5 MG TAB PO SCH (09:14)
[2017-08-12] MEDS: Folic Acid 1 MG TAB PO SCH (09:14)
[2017-08-12] MEDS: Famotidine 20 MG TAB PO SCH ×2 (09:14→20:20)
[2017-08-12] MEDS: Aspirin 325 MG TAB PO SCH (09:14)
[2017-08-12] MEDS: Cyanocobalamin (Vitamin B-12) 1,000 MCG TAB PO SCH (09:14)
[2017-08-12] MEDS: Carvedilol 3.125 MG TAB PO SCH ×2 (09:14→20:18)
[2017-08-12] MEDS: Multivit, Therapeutic 1 TAB PO SCH (09:14)
[2017-08-12] MEDS: Docusate 100 MG CAP PO SCH ×2 (09:15→20:19)
[2017-08-12] MEDS: Fluticasone Propionate Nasal Spray 16 gm Bottle NASAL SCH (09:18)
--- NOTE | 2017-08-12 10:00 | PDOC.PN ---
- Subjective Encounter Start Date: 08/12/17 Encounter Start Time: 08:00 Patient seen and examined. No new complaints. No overnight events. Feels somewhat better. - Objective Resuscitation Status: Resuscitation Status FULL:Full Resuscitation MAR Reviewed: Yes Vital Signs & Weight: Vital Signs (12 hours) Temp Pulse Resp BP BP BP Pulse Ox 08/12/17 07:40 97.9 F 90 18 116/82 93 L 08/12/17 04:43 107/70 106/80 08/12/17 04:00 97.8 F 93 22 H 112/75 96 08/12/17 00:00 97.8 F 92 18 103/70 93 L Weight Weight 182 lb I&O: 08/11/17 08/12/17 08/13/17 06:59 06:59 06:59 Intake Total 50 Output Total 50 Balance 0 Result Diagrams: 08/12/17 04:14 08/12/17 04:14 EKG Reviewed by me: Yes (Tele SR) Phys Exam - Physical Examination Constitutional: NAD Respiratory: no wheezing, no rhonchi Scat rales, Symmetrical Cardiovascular: RRR, no rub no heaves/pulsations Gastrointestinal: soft, non-tender, no distention, positive bowel sounds Musculoskeletal: edema present (improving) Neurological: non-focal, moves all 4 limbs Dx/Plan - Plan DVT proph w/lovenox IMPRESSION: 1. Generalized weakness, multifactorial. ?statin myopathy. 2. Non-ST elevation myocardial infarction/CAD - diffuse - ?inoperable 3. Chronic systolic/diastolic heart failure. Bilateral lower extremity swelling , probably secondary to venous stasis (Patient has been spending most of his time on the recliner last week) 4. Hypertension. The patient was hypotensive in the emergency room. 5. Degenerative joint disease. 6. Dehydration, probably secondary to diuretics and poor appetite. 7. Mild leukocytosis with left shift, unlikely to be infectious. 8. Elevated BNP, probably secondary to chronic congestive heart failure. 9. Hyponatremia, probably secondary to diuretics. 10. Chronic kidney disease stage 2. 11. Chronic pain syndrome. 12. History of prostate cancer. 13. Chronic anemia. PLAN: * Resume Lasix at 20 mg daily (Received one dose Lasix last night by overnight hospitalist * Cont ASA * Await Cardio input * Cont to monitor * Rehab eval * PT/OT Review of Systems - Review of Systems Constitutional: weakness (gen) Respiratory: negative: Cough, Dry, Shortness of Breath, Hemoptysis, SOB with Excertion, Pleuritic Pain, Sputum, Wheezing Cardiovascular: negative: chest pain, palpitations, orthopnea, paroxysmal nocturnal dyspnea, edema, light headedness - Medications/Allergies Allergies/Adverse Reactions: Allergies Allergy/AdvReac Type Severity Reaction Status Date / Time meperidine HCl [From Demerol] AdvReac Verified 05/18/16 10:51 Medications: Current Medications Acetaminophen (Tylenol) 650 mg PO Q4H PRN PRN Reason: Headache/Fever or Pain Albuterol/Ipratropium (Duoneb) 3 ml NEB [id number] PRN PRN Reason: SOB &/or Wheezing Aspirin (Aspirin) 325 mg PO DAILY PENDING SALE TO [facility] Last Admin: 08/12/17 09:14 Dose: 325 mg Bisacodyl (Dulcolax) 10 mg AL Q24H PRN PRN Reason: Constipation Carvedilol (Coreg) 3.125 mg PO BID PENDING SALE TO [facility] Last Admin: 08/12/17 09:14 Dose: 3.125 mg Coenzyme Q10 (Coenzyme Q10) 200 mg PO HS PENDING SALE TO [facility] Last Admin: 08/11/17 21:30 Dose: 200 mg Cyanocobalamin (Vitamin B-12) 1,000 mcg PO DAILY PENDING SALE TO [facility] Last Admin: 08/12/17 09:14 Dose: 1,000 mcg Docusate Sodium (Colace) 100 mg PO BID PENDING SALE TO [facility] Last Admin: 08/12/17 09:15 Dose: Not Given Enoxaparin Sodium (Lovenox) 40 mg SC 2100 PENDING SALE TO [facility] Last Admin: 08/11/17 21:31 Dose: 40 mg Famotidine (Pepcid) 20 mg PO BID PENDING SALE TO [facility] Last Admin: 08/12/17 09:14 Dose: 20 mg Fluticasone Propionate (Flonase Nasal [place]) 0 gm NASAL DAILY PENDING SALE TO [facility] Last Admin: 08/12/17 09:18 Dose: 1 spray Folic Acid (Folvite) 1 mg PO DAILY PENDING SALE TO [facility] Last Admin: 08/12/17 09:14 Dose: 1 mg Furosemide (Lasix) 20 mg PO DAILY PENDING SALE TO [facility] Gabapentin (Neurontin) 300 mg PO BID PENDING SALE TO [facility] Last Admin: 08/12/17 09:14 Dose: 300 mg Guaifenesin (Robitussin Sf) 200 mg PO Q4H PRN PRN Reason: Cough Hydralazine HCl (Apresoline) 10 mg SLOW IVP Q4H PRN PRN Reason: SBP Greater Than 180 Lisinopril (Zestril) 2.5 mg PO DAILY PENDING SALE TO [facility] Last Admin: 08/12/17 09:14 Dose: 2.5 mg Loratadine (Claritin) 10 mg PO DAILYPRN PRN PRN Reason: Sinus Symptoms Mineral Oil/White Petrolatum (Eucerin Cream) 0 gm TOP BIDPRN PRN PRN Reason: Dry Skin Multivitamins (Theragran) 1 tab PO DAILY PENDING SALE TO [facility] Last Admin: 08/12/17 09:14 Dose: 1 tab Nitroglycerin (Nitrostat) 0.4 mg PO Q5MIN PRN PRN Reason: Chest Pain Ondansetron HCl (Zofran Odt) 4 mg PO Q6H PRN PRN Reason: Nausea/Vomiting Ondansetron HCl (Zofran) 4 mg IVP Q6H PRN PRN Reason: Nausea/Vomiting Polyethylene Glycol (Miralax) 17 gm PO DAILY PRN PRN Reason: Constipation Senna (Senokot) 2 tab PO HSPRN PRN PRN Reason: Constipation Sodium Chloride (Flush - Normal Saline) 10 ml IVF PRN PRN PRN Reason: Saline Flush Last Admin: 08/11/17 21:29 Dose: 10 ml
[2017-08-12] MEDS: Enoxaparin Sodium 40 MG/0.4 ML SYRINGE SC SCH (20:19)
[2017-08-12] MEDS: Ubidecarenone 50 MG CAP PO SCH (20:20)
[2017-08-12] MEDS ORDERED: Atorvastatin Calcium 40 MG TAB PO SCH (21:00)
--- NOTE | 2017-08-13 00:58 | CON ---
DATE OF CONSULTATION: 08/12/2017 HISTORY OF PRESENT ILLNESS: The patient is an unfortunate 86-year-old gentleman who presented recently with a myocardial infarction. He was found to have a severe decrease in left ventricular systolic function and estimated ejection fraction of only approximately 20%. The patient subsequently underwent a cardiac catheterization and was found to have severe 3-vessel coronary artery disease with markedly reduced left ventricular systolic function. The patient presented to the emergency room, feeling extremely weak. He denied having any chest discomfort. The patient denies having any dyspnea. PAST MEDICAL HISTORY: 1. Severe three-vessel coronary artery disease. 2. Severe cardiomyopathy. 3. Hypertension. 4. Degenerative joint disease. PAST SURGICAL HISTORY: Prostatectomy, back surgery, bunionectomy. ALLERGIES: He is allergic to DEMEROL. MEDICATIONS ON ADMISSION: Aspirin 325 daily, Lipitor 40 at bedtime, Coreg 3.125 b.i.d., Lasix 20 b.i.d., KCl 20 daily, lisinopril 2.5 daily, gabapentin 300 daily. SOCIAL HISTORY: Nonsmoker. FAMILY HISTORY: No strong family history of heart disease. REVIEW OF SYSTEMS: Bright red blood per rectum, hematuria. Ten-point system noticeable for progressive weakness. PHYSICAL EXAMINATION: GENERAL: Elderly gentleman in no acute distress. VITAL SIGNS: Blood pressure 105/62. NECK: No jugular venous distention, no carotid bruits. LUNGS: Clear to auscultation. HEART: Regular rate and rhythm, normal S1, S2. ABDOMEN: Nondistended. EXTREMITIES: Showed 2+ edema. SKIN: Warm and dry. LABORATORY RESULTS: Sodium is 132, potassium 4.1, chloride 97, bicarbonate 23, BUN 43, creatinine 1.24, troponin was 1.449. IMPRESSION: 1. Weakness. 2. Possible recurrent non-Q-wave myocardial infarction. 3. Severe three-vessel coronary artery disease. 4. Severe ischemic cardiomyopathy. 5. History of hypertension. This gentleman presents with severe three-vessel coronary artery disease. I have asked CV Surgery to evaluate whether he has a prohibitive risk for surgery. I expect that he does have viable myocardium as Q-waves are only located in the inferior leads, which he has a totally occluded vessel. From a cardiac standpoint, he needs to be on lipid lowering medication. I doubt this is the cause of his weakness as he has a normal CPK and wishes to be placed on this medication. PLAN: 1. Consult CV Surgeon. 2. Restart Lipitor. 3. Start low dose spironolactone. MTDD
[2017-08-13 05:50] LABS: #Basophils 0.1 thou/uL (0.0-0.2); #Eosinphils 0.1 thou/uL (0.0-0.7); #Lymphocytes 1.3 thou/uL (1.20-3.40); #Monocytes 1.1 thou/uL (0.11-0.59); #Neutrophils 5.8 thou/uL (1.40-6.50); %Basophils 0.7 % (0.0-1.0); %Eosinophils 1.3 % (0.0-10.0); %Lymphocytes 15.8 % (21.0-51.0); %Monocytes 12.7 % (0.0-10.0); %Neutrophils 69.6 % (42.0-75.0); Hemoglobin 11.9 g/dL (14.0-18.0); Mean Corpuscular HGB CONC 33.1 g/dL (32.0-36.0); Mean Corpuscular Hemoglobin 31.6 pg (27.0-31.0); Mean Corpuscular Volume 95.8 fl (80.0-94.0); Mean Platelet Volume 9.2 fL (7.4-10.4); Platelet Count 262 thou/uL (130-400); RBC Distribution Width 12.1 % (11.5-14.5); Red Blood Cell (RBC) Count 3.75 mill/uL (4.70-6.10); White Blood Cell (WBC) Count 8.3 thou/uL (4.8-10.8)
[2017-08-13 06:17] LABS: Anion Gap 15 mmol/L (10-20); BUN (Urea Nitrogen) 51 mg/dL (8.4-25.7); BUN/Creatinine Ratio 37.78; Calc. Creatinine Clearance 47 mL/min (70-130); Calcium 9.5 mg/dL (7.8-10.44); Carbon Dioxide 23 mmol/L (23-31); Chloride 97 mmol/L (98-107); Estimated GFR-MDRD 50; Glucose 110 mg/dL (83-110); Magnesium 2.1 mg/dL (1.6-2.6); Phosphorus 3.6 mg/dL (2.3-4.7); Potassium 3.7 mmol/L (3.5-5.1); Sodium 131 mmol/L (136-145)
[2017-08-13] MEDS: Aspirin 325 MG TAB PO SCH (08:18)
[2017-08-13] MEDS: Carvedilol 3.125 MG TAB PO SCH ×2 (08:18→21:13)
[2017-08-13] MEDS: Spironolactone 25 MG TAB PO SCH (08:18)
[2017-08-13] MEDS: Cyanocobalamin (Vitamin B-12) 1,000 MCG TAB PO SCH (08:18)
[2017-08-13] MEDS: Fluticasone Propionate Nasal Spray 16 gm Bottle NASAL SCH (08:19)
[2017-08-13] MEDS: Lisinopril 2.5 MG TAB PO SCH (08:19)
[2017-08-13] MEDS: Furosemide 20 MG TAB PO SCH (08:19)
[2017-08-13] MEDS: Multivit, Therapeutic 1 TAB PO SCH (08:19)
[2017-08-13] MEDS: Gabapentin 300 MG CAP PO SCH ×2 (08:19→21:14)
[2017-08-13] MEDS: Docusate 100 MG CAP PO SCH ×2 (08:19→21:14)
[2017-08-13] MEDS: Famotidine 20 MG TAB PO SCH ×2 (08:19→21:14)
[2017-08-13] MEDS: Folic Acid 1 MG TAB PO SCH (08:19)
--- NOTE | 2017-08-13 14:12 | CON ---
DATE OF CONSULTATION: 08/13/2017 REQUESTING PHYSICIAN: Bill Matthews M.D. CHIEF COMPLAINT: Progressive weakness. HISTORY OF PRESENT ILLNESS: The patient is an 86-year-old man with hypertension who has undergone a previous open prostatectomy and spinal cord stimulator implantation. Shortly before this past Anthony mas, the patient was admitted from his primary care physician's office with signs and symptoms of con gestive heart failure. Over the previous few weeks, he had gained about 15 pounds and had developed massive edema in his lower extremities. He had not had any chest pain or pressure or orthopnea and carola mercado had only had mild dyspnea on exertion. During that hospitalization, he was found to have 3-ves paulina coronary disease, but severely decreased LV function with an EF estimated at 15%-20% range. He h ad echocardiographic findings suggestive of markedly elevated right-sided pressures with severe tricu spid regurgitation and estimated pulmonary pressures of 75 mmHg. He was diuresed, started on beta bl ockade and an LLOYD inhibitor and by the 's report, was started on a statin. He was discharged fro m the hospital about 2 weeks ago, but over the last 2 weeks has become progressively weaker. He real ly has not gotten out of his recliner very much and it reached a point where he really could not even get up out of his chair and he was brought to the emergency room. The patient denies any typical an ginal symptoms, although, on questioning, he does report some vague heaviness in the right lateral ch est. He denies any orthopnea. He does have lower extremity edema, but says that it is markedly bett er than when he was in the hospital previously. PAST MEDICAL HISTORY: Significant for his recently diagnosed coronary disease, hypertension, prostat e cancer, and a chronic pain syndrome. HOME MEDICATIONS: Adult aspirin a day, Coreg 3.125 mg b.i.d., lisinopril 2.5 mg a day, Lipitor 40 mg a day, Lasix 20 mg b.i.d., potassium chloride 20 mEq a day, Neurontin 300 mg b.i.d., and Flonase susan ly. ALLERGIES: Reports an allergy to DEMEROL. SOCIAL HISTORY: The patient does not smoke. FAMILY HISTORY: Negative for premature coronary disease. REVIEW OF SYSTEMS: Notable for his lower extremity edema and profound weakness. It is negative for any typical chest pain, pressure, squeezing. Negative for any shortness of breath other than some ve ry mild dyspnea on exertion. PHYSICAL EXAMINATION: GENERAL: He is a pleasant man in no distress. Heart rate is sinus rhythm in the 90s. Blood pressur e 135/84, room air sats are 95%, temperature is 97.9. Height is 5 foot 7, weight is 180 pounds. HEENT: He has no xanthelasma. NECK: No obvious JVD, no carotid bruits. LUNGS: His chest is clear to auscultation. I have difficulty auscultating. CARDIOVASCULAR: I hear no obvious murmurs or gallops. ABDOMEN: Soft, nontender without any obvious fluid wave. No bruits. He has a well healed surgical scar in the low vertical midline. He has palpable radial and femoral pulses. He has no femoral brui ts. He has 1-2+ pretibial edema and 2-3+ pedal edema. He has a bunion on the right foot laterally d isplacing his great toe. I am not able to appreciate dorsalis pedis or posterior tibial pulses, alth ough capillary refill appears good. His chest x-ray shows an elevated left hemidiaphragm and cardiom egaly, but only mild edema or prominence to the pulmonary markings densities consistent with his hist ory of a nerve stimulator implant visible. He has marked aortic valve calcification. LABORATORY DATA: Hemoglobin was 12.3, hematocrit 37.0, white count 11.0, platelets 243,000. Sodium 131, potassium 4.4, chloride 97, CO2 22, glucose 130, BUN 38, creatinine 1.23. Aldactone has been ad ded to his medical regimen and his BUN and creatinine have risen very slightly today, they are 51 and 1.35 respectively. LFTs were essentially normal. Calcium and magnesium were normal. Albumin was 3 .2. His CK was normal, MB 2.16. His troponin on admission was 1.766 and arnie slightly to 1.972 duri ng the course of the day, but by the next morning was down to 1.449, peaking at 1.972. His BNP on ad mission was 3192.7. His TSH was 1.0197. His a.m. cortisol on the 08/12/2017 was 22.1. In going through his old records, I was not able to get to the actual films of his cardiac catheteriz ation, but there was documentation of review of his films and discussion of his case with Dr. Maria. Apparently, the patient has sufficiently diffuse disease in his LAD to make it a poor candidate for revascularization there, although his circumflex and right coronary systems would provide reasonable targets. He has markedly decreased LV function and even if one were to pursue revascularization on t he premise of treating so-called hibernating myocardium, it would be high enough risk and have to req uire great enough support that this would probably not be a very good choice for site which they did, because of the amount of support available to provide him postoperatively. Even if he were an other [place] ideal candidate for revascularization, certainly he is not in optimal condition right now to und ergo surgery and would benefit from recovering from his profound weakness before subjecting him to dozier rgery. I suspect that Dr. Castillo's original plan of medical management is probably the most appropri ate.
--- NOTE | 2017-08-13 14:47 | PDOC.PN ---
- Subjective Encounter Start Date: 08/13/17 Encounter Start Time: 14:45 Patient seen at bedside. No overnight events, still feels weak. - Objective Resuscitation Status: Resuscitation Status CHEM:Chem Code Only Vital Signs & Weight: Vital Signs (12 hours) Temp Pulse Resp BP BP BP BP 08/13/17 12:33 96.4 F L 80 18 105/72 08/13/17 08:20 97.9 F 92 18 08/13/17 07:40 97.9 F 92 18 135/84 08/13/17 07:14 131/87 08/13/17 05:00 97.6 F 112/80 125/85 112/80 08/13/17 04:00 97.6 F 82 16 109/77 Pulse Ox 08/13/17 12:33 93 L 08/13/17 08:20 95 08/13/17 07:40 95 08/13/17 07:14 08/13/17 05:00 08/13/17 04:00 92 L Weight Weight 180 lb 4.8 oz I&O: 08/12/17 08/13/17 08/14/17 06:59 06:59 06:59 Intake Total 50 100 Output Total 50 Balance 0 100 Result Diagrams: 08/13/17 04:18 08/13/17 04:18 Phys Exam - Physical Examination Constitutional: NAD HEENT: moist MMs Neck: no JVD Respiratory: no wheezing Cardiovascular: RRR Gastrointestinal: soft Musculoskeletal: pulses present Neurological: moves all 4 limbs Psychiatric: A&O x 3 Dx/Plan (1) Generalized weakness Code(s): R53.1 - WEAKNESS Status: Acute (2) Hypertension Code(s): I10 - ESSENTIAL (PRIMARY) HYPERTENSION Status: Chronic (3) CAD (coronary artery disease) Code(s): I25.10 - ATHSCL HEART DISEASE OF [place] CORONARY ARTERY W/O ANG PCTRS Status: Chronic - Plan cont current plan of care, out of bed/ambulate, DVT proph w/SCDs * Appreciate [facility] input- no surgical intervention at this time. * Restart Low dose Lipitor and Spironolactone * ASA * Rehab screen
[2017-08-13] MEDS ORDERED: Clopidogrel Bisulfate 300 MG TAB PO SCH (16:15)
[2017-08-13] MEDS ORDERED: Aspirin 81 mg Enteric Coated Tablet PO SCH (16:30)
--- NOTE | 2017-08-13 17:34 | CT ---
CT HEAD NONCONTRAST: Indication: Altered mental status. FINDINGS: No evidence of acute intracranial hemorrhage, mass effect, midline shift or other acute intracranial process. There is mild parenchymal volume loss with compensatory dilatation likely related to patient 's age. There is a small fluid level partially imaged at the posterior right maxillary sinus. IMPRESSION: No acute intracranial abnormalities. POS: [facility]
[2017-08-13] MEDS: Ubidecarenone 50 MG CAP PO SCH (21:14)
[2017-08-13] MEDS: Enoxaparin Sodium 40 MG/0.4 ML SYRINGE SC SCH (21:14)
[2017-08-14 05:32] LABS: ALT (SGPT) 34 U/L (8-55); AST (SGOT) 48 U/L (5-34); Albumin 3.1 g/dL (3.4-4.8); Alkaline Phosphatase 80 U/L (40-150); Anion Gap 18 mmol/L (10-20); BUN (Urea Nitrogen) 49 mg/dL (8.4-25.7); Bilirubin, Total 0.7 mg/dL (0.2-1.2); Calc. Creatinine Clearance 47 mL/min (70-130); Calcium 9.4 mg/dL (7.8-10.44); Carbon Dioxide 20 mmol/L (23-31); Chloride 98 mmol/L (98-107); Estimated GFR-MDRD 50; Globulin 3.5 g/dL (2.4-3.5); Glucose 115 mg/dL (83-110); Potassium 4.3 mmol/L (3.5-5.1); Protein, Total 6.6 g/dL (5.8-8.1); Sodium 132 mmol/L (136-145)
[2017-08-14] MEDS: Carvedilol 3.125 MG TAB PO SCH ×2 (08:41→20:17)
[2017-08-14] MEDS: Gabapentin 300 MG CAP PO SCH ×2 (08:41→20:17)
[2017-08-14] MEDS: Multivit, Therapeutic 1 TAB PO SCH (08:42)
[2017-08-14] MEDS: Folic Acid 1 MG TAB PO SCH (08:42)
[2017-08-14] MEDS: Lisinopril 2.5 MG TAB PO SCH (08:42)
[2017-08-14] MEDS: Spironolactone 25 MG TAB PO SCH (08:42)
[2017-08-14] MEDS: Aspirin 81 mg Enteric Coated Tablet PO SCH (08:42)
[2017-08-14] MEDS: Famotidine 20 MG TAB PO SCH ×2 (08:43→20:17)
[2017-08-14] MEDS: Furosemide 20 MG TAB PO SCH (08:43)
[2017-08-14] MEDS: Cyanocobalamin (Vitamin B-12) 1,000 MCG TAB PO SCH (08:43)
[2017-08-14] MEDS: Fluticasone Propionate Nasal Spray 16 gm Bottle NASAL SCH (08:44)
[2017-08-14] MEDS: Docusate 100 MG CAP PO SCH ×2 (08:44→20:27)
[2017-08-14] MEDS ORDERED: Clopidogrel Bisulfate 75 MG TAB PO SCH (09:00)
--- NOTE | 2017-08-14 14:08 | PDOC.PN ---
- Subjective Encounter Start Date: 08/14/17 Encounter Start Time: 13:25 Patient seen and examined. Mentation slowly improving. No overnight events - Objective Resuscitation Status: Resuscitation Status CHEM:Chem Code Only MAR Reviewed: Yes Vital Signs & Weight: Vital Signs (12 hours) Temp Pulse Resp BP BP BP Pulse Ox 08/14/17 11:52 97.5 F L 76 17 115/74 91 L 08/14/17 08:42 91 113/76 08/14/17 08:00 97.5 F L 76 17 113/76 96 08/14/17 04:00 97.3 F L 91 16 118/81 95 08/14/17 03:24 98.7 F 79 20 109/80 97 Weight Weight 181 lb 9.6 oz I&O: 08/13/17 08/14/17 08/15/17 06:59 06:59 06:59 Intake Total 100 120 Balance 100 120 Result Diagrams: 08/13/17 04:18 08/14/17 04:18 Phys Exam - Physical Examination Constitutional: NAD Respiratory: no wheezing, no rhonchi Cardiovascular: RRR, no rub Gastrointestinal: soft, non-tender Musculoskeletal: no edema Neurological: moves all 4 limbs Psychiatric: A&O x 3 Dx/Plan - Plan DVT proph w/SCDs IMPRESSION: 1. Generalized weakness, multifactorial. ?statin myopathy. 2. Non-ST elevation myocardial infarction/CAD - diffuse - inoperable 3. Chronic systolic/diastolic heart failure. Bilateral lower extremity swelling improving 4. Hypertension. 5. Degenerative joint disease. 6. Dehydration, probably secondary to diuretics and poor appetite. 7. Mild leukocytosis with left shift, unlikely to be infectious. 8. Elevated BNP, probably secondary to chronic congestive heart failure. 9. Hyponatremia, probably secondary to diuretics. 10. Chronic kidney disease stage 2/ Chronic pain syndrome./ History of prostate cancer/Chronic anemia/Physical deconditioning PLAN: * Cont Lasix/Lisinopril/Aldactone * Cont other meds as below * Cardio following * Cont to monitor * Rehab eval pending * Cont PT/OT Review of Systems - Review of Systems Respiratory: negative: Cough, Dry, Shortness of Breath, Hemoptysis, SOB with Excertion, Pleuritic Pain, Sputum, Wheezing Cardiovascular: negative: chest pain, palpitations, orthopnea, paroxysmal nocturnal dyspnea, edema, light headedness - Medications/Allergies Allergies/Adverse Reactions: Allergies Allergy/AdvReac Type Severity Reaction Status Date / Time meperidine HCl [From Demerol] AdvReac Verified 05/18/16 10:51 Medications: Current Medications Acetaminophen (Tylenol) 650 mg PO Q4H PRN PRN Reason: Headache/Fever or Pain Albuterol/Ipratropium (Duoneb) 3 ml NEB [id number] PRN PRN Reason: SOB &/or Wheezing Aspirin (Ecotrin) 81 mg PO DAILY [facility] Last Admin: 08/14/17 08:42 Dose: 81 mg Bisacodyl (Dulcolax) 10 mg FL Q24H PRN PRN Reason: Constipation Carvedilol (Coreg) 3.125 mg PO BID [facility] Last Admin: 08/14/17 08:41 Dose: 3.125 mg Coenzyme Q10 (Coenzyme Q10) 200 mg PO HS [facility] Last Admin: 08/13/17 21:14 Dose: 200 mg Cyanocobalamin (Vitamin B-12) 1,000 mcg PO DAILY [facility] Last Admin: 08/14/17 08:43 Dose: 1,000 mcg Docusate Sodium (Colace) 100 mg PO BID [facility] Last Admin: 08/14/17 08:44 Dose: Not Given Enoxaparin Sodium (Lovenox) 40 mg SC 2100 [facility] Last Admin: 08/13/17 21:14 Dose: 40 mg Famotidine (Pepcid) 20 mg PO BID [facility] Last Admin: 08/14/17 08:43 Dose: 20 mg Fluticasone Propionate (Flonase Nasal Gower) 0 gm NASAL DAILY [facility] Last Admin: 08/14/17 08:44 Dose: 1 spray Folic Acid (Folvite) 1 mg PO DAILY [facility] Last Admin: 08/14/17 08:42 Dose: 1 mg Furosemide (Lasix) 20 mg PO DAILY [facility] Last Admin: 08/14/17 08:43 Dose: 20 mg Gabapentin (Neurontin) 300 mg PO BID [facility] Last Admin: 08/14/17 08:41 Dose: 300 mg Guaifenesin (Robitussin Sf) 200 mg PO Q4H PRN PRN Reason: Cough Hydralazine HCl (Apresoline) 10 mg SLOW IVP Q4H PRN PRN Reason: SBP Greater Than 180 Lisinopril (Zestril) 2.5 mg PO DAILY [facility] Last Admin: 08/14/17 08:42 Dose: Not Given Loratadine (Claritin) 10 mg PO DAILYPRN PRN PRN Reason: Sinus Symptoms Mineral Oil/White Petrolatum (Eucerin Cream) 0 gm TOP BIDPRN PRN PRN Reason: Dry Skin Multivitamins (Theragran) 1 tab PO DAILY [facility] Last Admin: 08/14/17 08:42 Dose: 1 tab Nitroglycerin (Nitrostat) 0.4 mg PO Q5MIN PRN PRN Reason: Chest Pain Ondansetron HCl (Zofran Odt) 4 mg PO Q6H PRN PRN Reason: Nausea/Vomiting Ondansetron HCl (Zofran) 4 mg IVP Q6H PRN PRN Reason: Nausea/Vomiting Polyethylene Glycol (Miralax) 17 gm PO DAILY PRN PRN Reason: Constipation Senna (Senokot) 2 tab PO HSPRN PRN PRN Reason: Constipation Sodium Chloride (Flush - Normal Saline) 10 ml IVF PRN PRN PRN Reason: Saline Flush Last Admin: 08/14/17 08:44 Dose: 10 ml Spironolactone (Aldactone) 25 mg PO QA-[facility] Last Admin: 08/14/17 08:42 Dose: 25 mg
--- NOTE | 2017-08-14 17:39 | PDOC.CTH ---
Cardiology Progress Note - Subjective He continues to feel weak. He has worked with PT. - Objective Vital Signs Temp Pulse Pulse Pulse Resp BP BP 08/14/17 15:48 97.5 F L 76 17 08/14/17 11:52 97.5 F L 76 17 08/14/17 09:48 83 78 119/83 08/14/17 08:42 91 113/76 08/14/17 08:00 97.5 F L 76 17 BP BP BP Pulse Ox 08/14/17 15:48 127/74 95 08/14/17 11:52 115/74 91 L 08/14/17 09:48 107/77 08/14/17 08:42 08/14/17 08:00 113/76 96 Weight 181 lb 9.6 oz 08/13/17 08/14/17 08/15/17 06:59 06:59 06:59 Intake Total 100 120 Balance 100 120 - Physical Examination General/Neuro: alert & oriented x3, NAD Neck: no JVD present Lungs: CTA, unlabored respirations Heart: RRR Abdomen: NT/ND Extremities: other: (no edema.) Other PE findings: Strength is 5+ on both upper and lower extremieties. - Telemetry Telemetry Rhythm: NSR - Labs Result Diagrams: 08/13/17 04:18 08/14/17 04:18 Troponin/CKMB CK-MB (CK-2) 2.6 ng/mL (0-6.6) 08/11/17 09:52 Troponin I 1.449 ng/mL (< 0.028) H* 08/12/17 04:14 - Assessment/Plan 1. Weakness. 2. Severe dilated CM EF at 20%. 3. Ischemic CM 4. Non revascularizable CAD. PLAN; - Possibly from statin drug. Will hold all statins for now indefinitely. - Will be a candidate for Repatha but this will be started as an outpatient. - Consider neurology consultation for evaluation of weakness. - Continue other HF meds.
[2017-08-14] MEDS: Ubidecarenone 50 MG CAP PO SCH (20:17)
[2017-08-14] MEDS: Enoxaparin Sodium 40 MG/0.4 ML SYRINGE SC SCH (20:17)
--- NOTE | 2017-08-14 23:48 | CON ---
NEUROLOGY CONSULTATION NOTE DATE OF CONSULTATION: 08/14/2017 CONSULTING PHYSICIAN: Hospitalist Service. IMPRESSION: 1. Dementia. 2. Some generalized weakness and instability. 3. Possible mild dehydration with orthostasis. PLAN: 1. Orthostatic blood pressures. 2. Further lab. 3. Discuss the history with his when available. 4. Possible rehabilitation candidate. HISTORY OF PRESENT ILLNESS: Mr. Campa is an 86-year-old gentleman who was brought in for increased confusion. Apparently, he had some short-term memory difficulties to start with. His is not av ailable to get further history. I tried to obtain what I could from the nursing staff. He reportedl y awakens from naps and is disoriented to where he is. He usually can be reoriented, but he is quite forgetful. There has not been any hallucinations or agitated behavior. He had a CT scan of the bra in done, which was essentially normal for age. His lab work has been unremarkable other than his BUN was a bit high compared to his creatinine. He has a past history of coronary artery disease and CHF . Apparently, he has gotten progressively weaker and was having trouble getting around his house. Josie chin has no reported trauma. PAST MEDICAL HISTORY: As listed. ALLERGIES: DEMEROL. SOCIAL HISTORY: No tobacco or alcohol use. Apparently, he is . He is retired from [employer]. FAMILY HISTORY: Noncontributory. REVIEW OF SYSTEMS: He has no other particular complaints. PHYSICAL EXAMINATION: GENERAL: A reasonably well-nourished elderly man sitting at the bedside. No acute distress. HEENT: Pupils are equal. Conjunctivae clear. Oropharynx clear. NECK: No lymphadenopathy. EXTREMITIES: No cyanosis. NEUROLOGIC: He is awake and cooperative. He followed commands reasonably well. His orientation was notable for an inability to recall that he was in the hospital and what city he was in. After being told these facts, he could not recall 5 minutes later. He did know the date and the president. He did know his age. His cranial nerve exam was unremarkable. Motor exam showed good strength in the u pper extremities without fix or drift. When attempting to stand, he was very weak and fell down with both hands to the chair and could not straighten himself. No tremor or dysmetria was present. Sens ation was intact to light touch. SUMMARY: An elderly gentleman with some cognitive impairment who was a bit more confused lately by h is 's assessment, may be due to dehydration. We can check for other possible correctable causes for memory decline. He is quite debilitated and there is some question about how much he was actuall y able to walk before he came into the hospital. Rehabilitation may be a reasonable option if they a re willing to give him a try. We will be happy to follow up with him as an outpatient.
[2017-08-15 05:40] LABS: Anion Gap 17 mmol/L (10-20); BUN (Urea Nitrogen) 50 mg/dL (8.4-25.7); Calc. Creatinine Clearance 46 mL/min (70-130); Calcium 9.4 mg/dL (7.8-10.44); Carbon Dioxide 19 mmol/L (23-31); Chloride 99 mmol/L (98-107); Estimated GFR-MDRD 48; Glucose 133 mg/dL (83-110); Magnesium 2.3 mg/dL (1.6-2.6); Potassium 4.3 mmol/L (3.5-5.1); Sodium 131 mmol/L (136-145)
[2017-08-15] MEDS: Carvedilol 3.125 MG TAB PO SCH (08:29)
[2017-08-15] MEDS: Docusate 100 MG CAP PO SCH (08:29)
[2017-08-15] MEDS: Gabapentin 300 MG CAP PO SCH (08:29)
[2017-08-15] MEDS: Multivit, Therapeutic 1 TAB PO SCH (08:46)
[2017-08-15] MEDS: Lisinopril 2.5 MG TAB PO SCH (08:46)
[2017-08-15] MEDS: Famotidine 20 MG TAB PO SCH (08:46)
[2017-08-15] MEDS: Folic Acid 1 MG TAB PO SCH (08:47)
[2017-08-15] MEDS: Spironolactone 25 MG TAB PO SCH (08:47)
[2017-08-15] MEDS: Aspirin 81 mg Enteric Coated Tablet PO SCH (08:47)
[2017-08-15] MEDS: Cyanocobalamin (Vitamin B-12) 1,000 MCG TAB PO SCH (08:47)
[2017-08-15] MEDS: Furosemide 20 MG TAB PO SCH (08:47)
[2017-08-15] MEDS: Fluticasone Propionate Nasal Spray 16 gm Bottle NASAL SCH (08:49)
[2017-08-15 17:26] VITALS: BP 108/78; TEMP 97.5
--- NOTE | 2017-08-15 18:07 | DIS ---
DATE OF DISCHARGE: 08/15/2017 DISCHARGE DISPOSITION: To inpatient rehabilitation. ALLERGIES: Patient is allergic to DEMEROL. CODE STATUS: DO NOT RESUSCITATE. INPATIENT CONSULTANTS: 1. Cardiology, Dr. Bill Matthews. 2. Neurology, Dr. Zaidi. 3. Cardiovascular, Dr. Friend. The patient was seen and examined on the day of discharge, denies any new complaints. Overall, jesset omatically feels much better. FOLLOWUP: With Dr. Heri De as scheduled. DISCHARGE MEDICATIONS: Aspirin 81 mg daily, carvedilol 3.125 mg b.i.d., vitamin B12 1000 mcg daily, Flonase daily, folic acid 1 mg daily, Lasix 20 mg daily, gabapentin 300 mg b.i.d., lisinopril 2.5 mg daily, multivitamin 1 tablet daily, sublingual nitroglycerin as needed, MiraLax 17 grams daily as nee ded, Aldactone 25 mg daily. Base met in 3-4 days is recommended. Primary care physician is advised to follow. BRIEF HOSPITAL COURSE: The patient is an 86-year-old male with a recent diagnosis of severe coronary artery disease with systolic and diastolic dysfunction, currently having LifeVest, presented to the hospital with generalized weakness. Please refer to the history and physical dated 08/11/2017 for fu rther details. The patient was admitted to the hospital with a diagnosis of generalized weakness along with non-ST e levation VT. His troponin on admission was 1.7. His maximum troponin this admission was 1.9. Soledad pearce was seen by Cardiology, Dr. Bill Matthews. He was conservatively managed. He was also evaluated by Cardiovascular, Dr. Friend. The patient is not a candidate for CABG given his diffuse diseas e. Due to generalized weakness, he was seen by Dr. Zaidi as well without any new recommendation. His orthostatic vitals were normal. His generalized weakness is probably secondary to statin myopath y. He has been cleared by consultants for discharge. He had transient delirium that is progressivel y getting better. FINAL DIAGNOSES: 1. Generalized weakness, probably secondary to statin myopathy. 2. Non-ST elevation myocardial infarction. 3. Inoperable diffuse coronary artery disease. 4. Chronic systolic/diastolic heart failure secondary to ischemic cardiomyopathy. Currently, has Li feVest. 5. Hypertension. 6. Degenerative joint disease. 7. Dehydration due to diuretics and poor appetite, improved. 8. Mild leukocytosis with left shift, unlikely to be infectious. 9. Hyponatremia. 10. Chronic kidney disease stage 2. 11. Chronic pain syndrome. 12. History of prostate cancer. 13. Chronic anemia. 14. Physical deconditioning. Total time coordinating the discharge of this patient was 33 minutes.
== END 2017-08-15 19:28 | DRG 91 ==
LOC: ERS 09:17 → ERHOLD 11:52 → 2NO 20:19
PROVIDERS: ADMIT Internal Medicine; ATTEND Internal Medicine
DX: G72.0 Drug-induced myopathy (principal); I21.4 Non-ST elevation (NSTEMI) myocardial infarction; I95.9 Hypotension, unspecified; I13.0 Hypertensive heart and chronic kidney disease with heart failure and stage 1 through stage 4 chronic kidney disease, or unspecified chronic kidney disease; I25.82 Chronic total occlusion of coronary artery; E87.1 Hypo-osmolality and hyponatremia; I42.0 Dilated cardiomyopathy; I50.42 Chronic combined systolic (congestive) and diastolic (congestive) heart failure; T46.6X5A Adverse effect of antihyperlipidemic and antiarteriosclerotic drugs, initial encounter; E86.0 Dehydration; T50.2X5A Adverse effect of carbonic-anhydrase inhibitors, benzothiadiazides and other diuretics, initial encounter; I25.10 Atherosclerotic heart disease of native coronary artery without angina pectoris; I25.5 Ischemic cardiomyopathy; N18.2 Chronic kidney disease, stage 2 (mild); M19.90 Unspecified osteoarthritis, unspecified site; G89.4 Chronic pain syndrome; D64.9 Anemia, unspecified; R41.0 Disorientation, unspecified; R63.0 Anorexia; Z68.29 Body mass index [BMI] 29.0-29.9, adult
CPT/HCPCS: 36415; 70450; 71045; 80048; 80053; 80069; 81003; 81015; 82533; 82550; 82553; 82607; 83605; 83690; 83735; 83880; 84436; 84443; 84484; 85025; 93005; 93970; 94760; 96372; A4216; G8978-GP-CL; G8979-GP-CK; G8987-GO-CM; G8988-GO-CK; J1650; J1940

== ENCOUNTER 2017-08-17 22:16 | Inpatient (IN) | payer MEDICARE ==
[2017-08-17 23:48] LABS: #Eosinphils 0.1 thou/uL (0.0-0.7); #Lymphocytes 1.7 thou/uL (1.20-3.40); #Monocytes 1.1 thou/uL (0.11-0.59); %Basophils 0.2 % (0.0-1.0); %Eosinophils 0.5 % (0.0-10.0); %Lymphocytes 17.2 % (21.0-51.0); %Monocytes 10.9 % (0.0-10.0); %Neutrophils 71.2 % (42.0-75.0); Hemoglobin 12.5 g/dL (14.0-18.0); Mean Corpuscular HGB CONC 33.6 g/dL (32.0-36.0); Mean Corpuscular Volume 95.4 fl (80.0-94.0); Mean Platelet Volume 8.9 fL (7.4-10.4); Platelet Count 283 thou/uL (130-400); RBC Distribution Width 12.7 % (11.5-14.5); Red Blood Cell (RBC) Count 3.89 mill/uL (4.70-6.10); White Blood Cell (WBC) Count 9.8 thou/uL (4.8-10.8)
[2017-08-18 00:20] LABS: ALT (SGPT) 69 U/L (8-55); AST (SGOT) 74 U/L (5-34); Albumin 3.5 g/dL (3.4-4.8); Alkaline Phosphatase 108 U/L (40-150); Anion Gap 13 mmol/L (10-20); BUN (Urea Nitrogen) 57 mg/dL (8.4-25.7); Bilirubin, Total 0.6 mg/dL (0.2-1.2); Calc. Creatinine Clearance 0 mL/min (70-130); Calcium 9.5 mg/dL (7.8-10.44); Carbon Dioxide 29 mmol/L (23-31); Chloride 96 mmol/L (98-107); Estimated GFR-MDRD 41; Globulin 3.3 g/dL (2.4-3.5); Glucose 122 mg/dL (83-110); Potassium 4.3 mmol/L (3.5-5.1); Protein, Total 6.8 g/dL (5.8-8.1); Sodium 134 mmol/L (136-145)
[2017-08-18 00:22] LABS: CKMB 3.5 ng/mL (0-6.6)
[2017-08-18 00:28] LABS: Critical Call Chem Troponin I RESULT DECREASING; Troponin I 0.355 ng/mL (< 0.028)
[2017-08-18 00:33] LABS: Bilirubin Negative (Negative); Blood, Urine Negative (Negative); Clarity CLOUDY (Clear); Glucose, Urine (Dipstick) Negative (Negative); Leukocyte Moderate (Negative); Nitrite Negative (Negative); Protein, Urine (Dipstick) Negative (Neg-Trace); Specific Gravity, Urine 1.026 (1.002-1.036)
[2017-08-18 00:39] LABS: Bacteria/HPF None Seen HPF (None Seen); RBC/HPF 0-3 HPF (0-3); WBC/HPF 0-3 HPF (0-3)
[2017-08-18 00:41] LABS: Pathc Cast-AUWi Flag 5.42 (0-2.49)
[2017-08-18 00:57] LABS: Crystals/HPF None Seen HPF (Negative); Manual Microscopic Reviewed? No Path Casts Seen; Renal Epithelial None Seen HPF (0-3); Transitional Epithelial NONE SEEN HPF (0-3); Trichomonas/HPF None Seen HPF (None Seen)
[2017-08-18] MEDS ORDERED: Furosemide 20 MG/2 ML VIAL ONE (02:36)
[2017-08-18 03:47] LABS: Lactic Acid 2.3 mmol/L (0.5-2.2)
[2017-08-18 03:48] LABS: CKMB 3.6 ng/mL (0-6.6)
[2017-08-18 03:51] LABS: Troponin I 0.363 ng/mL (< 0.028)
[2017-08-18] MEDS ORDERED: Ondansetron ODT 4 MG TAB SL PRN (03:55)
[2017-08-18] MEDS ORDERED: Acetaminophen 325 MG TAB PO PRN (03:55)
[2017-08-18] MEDS ORDERED: Ondansetron HCl/PF 4 MG/2 ML Vial IVP PRN (03:55)
[2017-08-18 06:32] LABS: Troponin I 0.295 ng/mL (< 0.028)
--- NOTE | 2017-08-18 07:55 | RAD ---
RADIOGRAPH CHEST 1 VIEW: Date: 08/18/17. Time: 12:14 a.m. HISTORY: An 86-year-old male with posterior chest pain and weakness. COMPARISON: 08/11/17. FINDINGS: The lungs are hypoinflated now compared to the previous study. There is a new finding of mild airspa ce density at the right lower lung zone. There is cardiomegaly. No priscila pulmonary edema. No pneum othorax. IMPRESSION: Right lower lung zone airspace opacity: atelectasis versus pneumonia. JN [] POS: OFF
[2017-08-18] MEDS ORDERED: Polyethylene Glycol 3350 17 GM Packet PO PRN (09:23)
[2017-08-18 10:08] LABS: Troponin I 0.317 ng/mL (< 0.028)
[2017-08-18] MEDS ORDERED: Gabapentin 300 MG CAP PO SCH (11:15)
--- NOTE | 2017-08-18 12:42 | HP ---
CHIEF COMPLAINT: Shortness of breath. HISTORY OF PRESENT ILLNESS: This is an 86-year-old white male who presented from inpatient rehab [facility] a recent discharge from CHF exacerbation. The patient has known history of congestive heart f ailure and a history of cardiomyopathy with low EF of 15-20%. Initially, he was sent to inpatient re hab on the LifeVest. During the rehab physical therapy over there he developed worsening shortness o f breath and drop in saturations to 80s, so he was started on nasal cannula oxygen and was referred t [facility] ER. The patient presented to the ER, had a chest x-ray showing evidence of a right lowe r lung infiltrate or possibly atelectasis. He did not had a fever, but was having some cough and his orientation has completely gone. The patient is unable to answer any questions. Most of the histor y is obtained from the patient's at the bedside. The patient's clearly mentioned that the patient is a DNR and DNI based on her recent documentation they have done. The patient is alert, but completely disoriented. Denies having any chest pain at this time, but he did complain of some ches t pain in the ER. He did have some mild troponin elevations and had a markedly elevated BNP compared to his previous admissions. PAST MEDICAL HISTORY: 1. Recently diagnosed systolic and diastolic heart failure. 2. Severe coronary artery disease with a cardiac catheterization on 07/23/2017 showing a severe left ventricular dysfunction with a 10% ejection fraction. 3. Hypertension. 4. Chronic anemia. 5. Chronic kidney disease stage 3. 6. History of prostate cancer. 7. History of chronic pain syndrome. 8. History of degenerative joint disease. PAST SURGICAL HISTORY: 1. Cardiac catheterization 1 month ago. 2. Prostatectomy in 1994. 3. Back surgery with spinal stimulator. 4. Bunionectomy. ALLERGIES: Allergic to DEMEROL. HOME MEDICATIONS: 1. Aspirin 325 mg p.o. daily. 2. Lipitor 40 mg p.o. daily 3. Carvedilol 3.125 p.o. b.i.d. 4. Lasix 20 mg p.o. daily. 5. Lisinopril 2.5 mg p.o. daily. 6. Gabapentin 300 mg p.o. b.i.d. 7. Multivitamin 1 tablet p.o. daily. 8. Polymyxin 17 grams daily. 9. Spironolactone 25 mg p.o. daily. REVIEW OF SYSTEMS: Unobtainable because the patient is completely disoriented. SOCIAL HISTORY: The patient was from inpatient rehab at this time, but otherwise lives at home. No history of smoking. No history of drugs. No history of illicit drug use. FAMILY HISTORY: Negative for any premature coronary artery disease. PHYSICAL EXAMINATION: VITAL SIGNS: Blood pressures are 116/89, heart rate is 80, respiratory is 20, saturation is 98%. GENERAL: The patient is moderately built and moderately nourished, does not appear to be in acute di stress. CARDIOVASCULAR: S1, S2 normal. No murmurs, no rubs or gallops. LUNGS: Bilateral air entry was equal. Crackles were noted in lower bases. ABDOMEN: Soft, nontender, no guarding, no rebound tenderness. Bowel sounds normal. MUSCULOSKELETAL: No calf tenderness. No pedal edema. EXTREMITIES: No joint tenderness, no joint swelling. SKIN: No cyanosis, no erythema, no rash, no pallor. NEUROLOGIC: Cranial nerve examination II-XII intact. No focal deficits were noted. LABORATORY DATA: WBC 9.8, hemoglobin is 12.5, hematocrit is 37.1, platelets are 283. Sodium is 134, potassium is 4.3, chloride is 96, BUN is 57, creatinine is 1.63. Lactic acid is 2.3. The most rece nt troponin is 0.317. BNP is 4460. His last BNP was 339. Chest x-ray was done showing evidence of possible right lower lung infiltrate or atelectasis was note d. Chest x-ray had been reviewed by me. ASSESSMENT AND PLAN: 1. Acute hypoxic respiratory failure. 2. Fri-IS-coutzfy elevation myocardial infarction. 3. Acute congestive heart failure exacerbation, systolic dysfunction. 4. Acute kidney injury on chronic kidney disease stage 3. 5. Hypertension. 6. Coronary artery disease. PLAN: 1. The plan is to start the patient on nasal cannula and continue with DuoNeb nebulizer treatments e very 4 hours. We will start the patient on levofloxacin 500 mg IV daily and will also start him on i ncentive spirometry q.1 hour. 2. The patient has clear evidence of congestive heart failure with elevated BNP. Will continue the patient on Lasix at 20 mg IV b.i.d. as the patient has some renal dysfunction. We will consult [facility] ology contract law specialist. 3. The patient has elevated troponins, most likely this could be from the poor heart function, but t he EKG was showing no ST segment elevation at this time. The patient has a poor prognosis secondary to stage IV congestive heart failure, the patient basically on LifeVest waiting for ICD. We will con tinue to follow Cardiology recommendations at this time. 4. The patient has history of hypertension. We will continue the home medications. He is on lisino pril, spironolactone and Coreg. We will continue with these medications. 5. History of coronary artery disease. We will continue to follow Cardiology recommendations. This patient is on aspirin. We will continue with this medication. 6. DVT prophylaxis; Lovenox 40 mg subcu daily. I spent 70 minutes with this patient and 1 hour was critical care time.
[2017-08-18] MEDS: Furosemide 20 MG/2 ML VIAL SLOW IVP SCH (15:14)
--- NOTE | 2017-08-18 17:12 | CON ---
DATE OF CONSULTATION: 08/18/2017 REASON FOR CONSULTATION: Acute on chronic systolic heart failure. Please refer to Dr. Xi Schmid's full H&P for details. HISTORY OF PRESENT ILLNESS: Mr. Campa is a pleasant 86-year-old gentleman with history of ischemic cardiomyopathy, felt to be inoperable, recently came back to the hospital from rehabilitation due to shortness of breath and hypoxia. He has LVEF of 25% and has had a LifeVest. He has not had signific ant weight gain. He did have significant edema during his previous admission. Angiogram performed o n 07/26/[address] Castillo suggested 90% stenosis of the LAD in addition to 90% of the first diagonal branch, 90% of the circumflex artery, 90% of the OM branch and 100% occlusion of the right coronary artery. He is not felt to be an operable candidate. PAST MEDICAL HISTORY: Severe CAD, ischemic cardiomyopathy, dementia, chronic anemia, chronic kidney disease, prostate cancer, DJD, hypertension. PAST SURGICAL HISTORY: Prostatectomy, back surgery, bunionectomy. ALLERGIES: DEMEROL. MEDICATIONS: Include aspirin, Lipitor, carvedilol, Lasix, lisinopril, gabapentin, multivitamin, and spironolactone. SOCIAL HISTORY: No current tobacco or alcohol use. FAMILY HISTORY: Negative for CAD. REVIEW OF SYSTEMS: Ten-point review of systems is reviewed and as above, otherwise negative. PHYSICAL EXAMINATION: GENERAL: Patient is a pleasant male who is in no acute distress. The patient appears his stated age . VITAL SIGNS: Blood pressure 111/91, pulse 74, O2 saturation 100%. NEUROLOGIC: The patient is alert and oriented times 3 with no focal neurologic deficits. HEENT: Sclerae without icterus. Mouth has moist mucous membranes with normal pallor. NECK: No JVD. Carotid upstroke brisk. No bruits bilaterally. LUNGS: Crackles noted bilaterally. BACK: No scoliosis or kyphosis. CARDIAC: Regular rate and rhythm with normal S1 and S2. No S3 or S4 noted. No significant rubs, mu rmurs, thrills, or gallops noted throughout the precordium. PMI is not displaced. There is no fabiola ternal heave. ABDOMEN: Soft, nontender, nondistended. No peritoneal signs present. No hepatosplenomegaly. No ab normal striae. EXTREMITIES: 2+ femoral and 2+ dorsalis pedis pulses. No cyanosis, clubbing, or edema. SKIN: No gross abnormalities. IMAGING: Chest x-ray with right lower lung airspace suggesting atelectasis versus pneumonia. IMPRESSION: 1. Acute on chronic systolic heart failure. 2. ? pneumonia. 3. Severe coronary artery disease. 4. Chronic kidney disease. RECOMMENDATIONS: I did state to the family options are fairly limited. Unfortunately, given his isc hemic cardiomyopathy with severe multivessel disease, he is going to be prone to recurrent hospitaliz ations. It will be very difficult to control his fluid status. At this point, we will continue with aspirin and carvedilol. He has been placed on IV Lasix and we will continue. We will also continue spironolactone. May consider Zaroxolyn. Again, options are pretty limited.
--- NOTE | 2017-08-18 17:18 | CON-2 ---
DATE OF CONSULTATION: 08/18/2017 ATTENDING PHYSICIAN: Cristhian Bell M.D. RESIDENT: Xi Schmid M.D., PGY-2. REASON FOR CONSULTATION: COPD exacerbation. HISTORY OF PRESENT ILLNESS: The patient is an 86-year-old male who presented from inpatient rehab af ter being discharged on 08/15/2016 for CHF exacerbation. During physical therapy, the patient develo ped worsening dyspnea and hypoxia to the 80s. The patient has not noticed any increase in lower extr emity edema. In fact, notes that his lower extremity edema has improved compared to the last hospita lization. He does complain of a cough that has been present prior to this hospitalization. Of note, the patient underwent a left heart cardiac catheterization, had a previous hospitalization i n 07/2017. He was found to have severe multivessel disease and severe left ventricle dysfunction wit h an EF of 10% to 15%. The patient was deemed a poor candidate for revascularization and medical man agement was inactive. PAST MEDICAL HISTORY: 1. Ischemic cardiomyopathy. 2. Coronary artery disease. 3. Hypertension. 4. Chronic kidney disease. 5. History of prostate cancer. 6. Chronic pain. PAST SURGICAL HISTORY: 1. Prostatectomy. 2. Back surgery, spinal cord stimulator. 3. Bunionectomy. 4. Cardiac catheterization, in July. ALLERGIES: DEMEROL. HOME MEDICATIONS: 1. Spironolactone 25 mg p.o. q.a.m. 2. MiraLax 17 grams p.o. p.r.n. 3. Theragran 1 tablet p.o. daily. 4. Lisinopril 2.5 mg p.o. daily. 5. Gabapentin 300 mg p.o. b.i.d. 6. Lasix 20 mg p.o. daily. 7. Folic acid 1 mg p.o. daily. 8. Fluticasone 1 spray per nare daily. 9. Vitamin B12 1000 mcg p.o. daily. 10. Carvedilol 3.125 mg p.o. b.i.d. 11. Aspirin 81 mg p.o. daily. TOBACCO: The patient is a former smoker. SOCIAL HISTORY: The patient is a former smoker who quit smoking in his teens. Denies alcohol and dr ug use. REVIEW OF SYSTEMS: Positive findings included lower extremity edema and dyspnea with exertion and ge neralized weakness. Ten-point review of systems otherwise negative. PHYSICAL EXAMINATION: VITAL SIGNS: Blood pressure 108/83, pulse 83, respirations 20, T-max 97.8, pulse ox 100% on 2 liters and weight 78.43 kilograms. GENERAL: The patient is drowsy; however, answers appropriately when questioned. HEENT: Extraocular muscles intact. NECK: Supple. No lymphadenopathy. CARDIOVASCULAR: Regular rate and rhythm with no murmurs, rubs or gallops limits. RESPIRATORY: Lungs are clear to auscultation bilaterally. Patient is breathing with normal effort. SKIN: Warm and dry with no cyanosis or lesions. ABDOMEN: Soft, nontender to palpation. No distention or organomegaly. EXTREMITIES: No clubbing or cyanosis. 1+ pitting edema. MUSCULOSKELETAL: Structure and tone within normal limits. NEUROLOGIC: Cranial nerves II through XII intact grossly. No focal deficits. LABORATORY DATA AND IMAGING DATA: 1. CBC: White blood cell count 9.8, hemoglobin 12.5, hematocrit 37.1 and platelet count 283. 2. BMP: Sodium 134, potassium 4.3, chloride 96, carbon dioxide 29, BUN 57, creatinine 1.63, glucose 122, calcium 9.5, total bilirubin 0.6, AST 74, ALT 69, alkaline phosphatase 18, total protein 6.8 an d albumin 3.5. 3. Cardiac enzymes: CK-MB 3.5, troponin 0.355, 0.363, 0.295 and 0.317. BNP 4460. 4. Chest x-ray shows right lower lung zone airspace opacity atelectasis versus pneumonia. ASSESSMENT AND PLAN: The patient is an 86-year-old male with worsening dyspnea and acute hypoxic res piratory failure, likely multifactorial related to pneumonia versus chronic obstructive pulmonary dis ease exacerbation. We will continue medical management with IV Lasix, lisinopril, spironolactone and carvedilol. Wean oxygen as tolerated. The patient is receiving levofloxacin and breathing treatmen ts for pneumonia. A 2000 mL fluid restriction is in place. We will follow daily weights and strict intake and output.
[2017-08-18] MEDS: Gabapentin 300 MG CAP PO SCH (20:30)
[2017-08-18] MEDS: Carvedilol 3.125 MG TAB PO SCH (20:30)
[2017-08-19 05:39] LABS: Anion Gap 17 mmol/L (10-20); BUN (Urea Nitrogen) 48 mg/dL (8.4-25.7); Calc. Creatinine Clearance 43 mL/min (70-130); Calcium 9.1 mg/dL (7.8-10.44); Carbon Dioxide 21 mmol/L (23-31); Chloride 99 mmol/L (98-107); Estimated GFR-MDRD 47; Glucose 113 mg/dL (83-110); Sodium 133 mmol/L (136-145)
[2017-08-19] MEDS: Furosemide 20 MG/2 ML VIAL SLOW IVP SCH (06:31)
[2017-08-19] MEDS ORDERED: Prevnar 13-Val Conj/PF 0.5 ML SYRINGE IM ONE (09:00)
[2017-08-19] MEDS ORDERED: FLU VACC TS2017-18 (>65YR) 0.5 ML SYRINGE IM ONE (09:00)
[2017-08-19] MEDS: Carvedilol 3.125 MG TAB PO SCH ×2 (09:38→20:13)
[2017-08-19] MEDS: Spironolactone 25 MG TAB PO SCH (09:38)
[2017-08-19] MEDS: Famotidine/PF 20 mg/2ml Vial SLOW IVP SCH (09:38)
[2017-08-19] MEDS: Folic Acid 1 MG TAB PO SCH (09:38)
[2017-08-19] MEDS: Gabapentin 300 MG CAP PO SCH ×2 (09:38→20:13)
[2017-08-19] MEDS: Enoxaparin Sodium 40 MG/0.4 ML SYRINGE SC SCH (09:38)
[2017-08-19] MEDS: Lisinopril 2.5 MG TAB PO SCH (09:39)
[2017-08-19] MEDS: Multivit, Therapeutic 1 TAB PO SCH (09:40)
[2017-08-19] MEDS: Fluticasone Propionate Nasal Spray 16 gm Bottle NASAL SCH (09:50)
--- NOTE | 2017-08-19 10:11 | PDOC.PN ---
- Subjective Encounter Start Date: 08/19/17 Encounter Start Time: 10:20 Patient is seen today, more alert, With at bedside, Suggested will continue with medical management, till monday if worsening will do paliative care. - Objective MAR Reviewed: Yes Vital Signs & Weight: Vital Signs (12 hours) Temp Pulse Resp BP BP Pulse Ox 08/19/17 09:39 87 116/87 08/19/17 08:31 87 16 98 08/19/17 07:43 97.7 F 69 20 116/87 95 08/19/17 03:29 97.5 F L 88 20 136/85 98 08/19/17 02:45 78 14 99 08/18/17 22:26 85 16 97 Weight Weight 176 lb 4.8 oz I&O: 08/18/17 08/19/17 08/20/17 06:59 06:59 06:59 Intake Total 720 Balance 720 Result Diagrams: 08/17/17 23:40 08/19/17 04:41 Radiology Reviewed by me: Yes Phys Exam - Physical Examination HEENT: PERRLA, moist MMs Neck: no nodes, no JVD Respiratory: no rales, wheezing present Cardiovascular: RRR, no significant murmur Gastrointestinal: soft, non-tender Musculoskeletal: pulses present, edema present Dx/Plan (1) Pneumonia Code(s): J18.9 - PNEUMONIA, UNSPECIFIED ORGANISM Status: Acute Qualifiers: Laterality: right Lung location: lower lobe of lung (2) Atelectasis of right lung Code(s): J98.11 - ATELECTASIS Status: Acute (3) Generalized weakness Code(s): R53.1 - WEAKNESS Status: Acute (4) Systolic CHF, acute on chronic Code(s): I50.23 - ACUTE ON CHRONIC SYSTOLIC (CONGESTIVE) HEART FAILURE Status : Acute (5) CAD (coronary artery disease) Code(s): I25.10 - ATHSCL HEART DISEASE OF [place] CORONARY ARTERY W/O ANG PCTRS Status: Chronic (6) Hypertension Code(s): I10 - ESSENTIAL (PRIMARY) HYPERTENSION Status: Chronic - Plan cont current plan of care, plan discussed w/ family, continue antibiotics, PT/OT , respiratory therapy, incentive spirometry, DVT proph w/lovenox Plan: Will continue with Supoortive therapy, lasix and neb treatments, PT/OT. Cardiology said no further intervention WIll continue with IV antibiotics for Pneumonia and Incentive spirometry. Will continue with NC oxygen for Chronic Respiratory failure, clsoley Monitor. GI prophylaxis with Famotidine DVT prophylaxis pt is on Eliquis HTn is well controlled. - Discharge Day Encounter end time: 10:50 Review of Systems - Review of Systems Constitutional: negative: fever, chills, sweats, weakness, malaise, other Eyes: negative: Pain, Vision Change, Conjunctivae Inflammation, Eyelid Inflammation, Redness, Other ENT: negative: Ear Pain, Ear Discharge, Nose Pain, Nose Discharge, Nose Congestion, Mouth Pain, Mouth Swelling, Throat Pain, Throat Swelling, Other Respiratory: Cough, Shortness of Breath. negative: Dry, Hemoptysis, SOB with Excertion, Pleuritic Pain, Sputum, Wheezing Cardiovascular: negative: chest pain, palpitations, orthopnea, paroxysmal nocturnal dyspnea, edema, light headedness, other Gastrointestinal: negative: Nausea, Vomiting, Abdominal Pain, Diarrhea, Constipation, Melena, Hematochezia, Other Skin: negative: Rash, Lesions, Santiago, Bruising, Other Neurological: Weakness - Medications/Allergies Allergies/Adverse Reactions: Allergies Allergy/AdvReac Type Severity Reaction Status Date / Time meperidine HCl [From Demerol] AdvReac Verified 08/18/17 04:44 Medications: Current Medications Hydrocodone Bitart/Acetaminophen ([place] 5/325) 1 tab PO Q4H PRN PRN Reason: Moderate Pain (4-6) Albuterol/Ipratropium (Duoneb) 3 ml NEB [id number] [facility] Last Admin: 08/19/17 11:06 Dose: 3 ml Aspirin (Aspirin Chewable) 81 mg PO DAILY [facility] Last Admin: 08/19/17 09:38 Dose: 81 mg Carvedilol (Coreg) 3.125 mg PO BID [facility] Last Admin: 08/19/17 09:38 Dose: 3.125 mg Enoxaparin Sodium (Lovenox) 40 mg SC 0900 [facility] Last Admin: 08/19/17 09:38 Dose: 40 mg Famotidine (Pepcid) 20 mg SLOW IVP DAILY [facility] Last Admin: 08/19/17 09:38 Dose: 20 mg Fluticasone Propionate (Flonase Nasal [place]) 0 gm NASAL DAILY [facility] Last Admin: 01/13/18 09:50 Dose: Not Given Folic Acid (Folvite) 1 mg PO DAILY [facility] Last Admin: 08/19/17 09:38 Dose: 1 mg Furosemide (Lasix) 40 mg SLOW IVP 0600,1200 [facility] Gabapentin (Neurontin) 300 mg PO BID [facility] Last Admin: 08/19/17 09:38 Dose: 300 mg Levofloxacin 500 mg/ Device 100 mls @ 100 mls/hr IVPB 1100 [facility] Last Admin: 08/18/17 10:54 Dose: 100 mls Lisinopril (Zestril) 2.5 mg PO DAILY [facility] Last Admin: 08/19/17 09:39 Dose: 2.5 mg Multivitamins (Theragran) 1 tab PO DAILY [facility] Last Admin: 08/19/17 09:40 Dose: 1 tab Polyethylene Glycol (Miralax) 17 gm PO DAILY PRN PRN Reason: Constipation Sodium Chloride (Flush - Normal Saline) 10 ml IVF Q12HR [facility] Last Admin: 08/19/17 09:40 Dose: 10 ml Sodium Chloride (Flush - Normal Saline) 10 ml IVF PRN PRN PRN Reason: Saline Flush Last Admin: 08/19/17 06:30 Dose: 10 ml Spironolactone (Aldactone) 25 mg PO QAM-WM [facility] Last Admin: 08/19/17 09:38 Dose: 25 mg
[2017-08-19] MEDS: Furosemide 40 MG/4 ML VIAL SLOW IVP SCH (11:48)
[2017-08-20 05:39] LABS: Anion Gap 15 mmol/L (10-20); BUN (Urea Nitrogen) 43 mg/dL (8.4-25.7); Calc. Creatinine Clearance 40 mL/min (70-130); Calcium 9.3 mg/dL (7.8-10.44); Carbon Dioxide 23 mmol/L (23-31); Chloride 99 mmol/L (98-107); Estimated GFR-MDRD 44; Glucose 163 mg/dL (83-110); Sodium 133 mmol/L (136-145)
[2017-08-20] MEDS: Furosemide 40 MG/4 ML VIAL SLOW IVP SCH ×2 (06:28→11:06)
[2017-08-20] MEDS: Spironolactone 25 MG TAB PO SCH (09:04)
[2017-08-20] MEDS: Gabapentin 300 MG CAP PO SCH ×2 (09:05→20:33)
[2017-08-20] MEDS: Famotidine/PF 20 mg/2ml Vial SLOW IVP SCH (09:05)
[2017-08-20] MEDS: Carvedilol 3.125 MG TAB PO SCH ×2 (09:05→20:33)
[2017-08-20] MEDS: Folic Acid 1 MG TAB PO SCH (09:05)
[2017-08-20] MEDS: Enoxaparin Sodium 40 MG/0.4 ML SYRINGE SC SCH (09:05)
[2017-08-20] MEDS: Multivit, Therapeutic 1 TAB PO SCH (09:06)
[2017-08-20] MEDS: Lisinopril 2.5 MG TAB PO SCH (09:06)
[2017-08-20] MEDS: Fluticasone Propionate Nasal Spray 16 gm Bottle NASAL SCH (09:15)
[2017-08-20] MEDS ORDERED: Sterile Water 10 ML ONE (12:19)
[2017-08-20] MEDS: Ziprasidone 20 MG VIAL IM PRN (12:24)
--- NOTE | 2017-08-20 14:03 | PDOC.PN ---
- Subjective Encounter Start Date: 08/20/17 Encounter Start Time: 10:00 Discussed with at bedside, Will start discusing about Hospice options from tomorrow. pt is completely in Delirium. - Objective MAR Reviewed: Yes Vital Signs & Weight: Vital Signs (12 hours) Temp Pulse Resp BP BP Pulse Ox 08/20/17 13:20 97.7 F 90 14 105/75 97 08/20/17 11:35 98.4 F 71 16 149/70 H 93 L 08/20/17 09:06 84 111/77 08/20/17 08:32 84 16 93 L 08/20/17 08:00 97.9 F 84 16 94 L 08/20/17 07:44 97.9 F 98 20 111/77 94 L 08/20/17 04:28 100 08/20/17 03:38 97.2 F L 88 18 106/83 98 Weight Weight 170 lb I&O: 08/19/17 08/20/17 08/21/17 06:59 06:59 06:59 Intake Total 720 1314 Balance 720 1314 Result Diagrams: 08/17/17 23:40 08/20/17 04:54 Radiology Reviewed by me: Yes Phys Exam - Physical Examination HEENT: PERRLA, moist MMs Neck: no nodes, no JVD Respiratory: no rales, wheezing present Cardiovascular: RRR, no significant murmur Gastrointestinal: soft, non-tender Musculoskeletal: pulses present Neurological: normal sensation -: Pt is Altered Dx/Plan (1) Acute metabolic encephalopathy Code(s): G93.41 - METABOLIC ENCEPHALOPATHY Status: Acute (2) Systolic CHF, acute on chronic Code(s): I50.23 - ACUTE ON CHRONIC SYSTOLIC (CONGESTIVE) HEART FAILURE Status : Acute (3) Pneumonia Code(s): J18.9 - PNEUMONIA, UNSPECIFIED ORGANISM Status: Acute Qualifiers: Laterality: right Lung location: lower lobe of lung (4) Atelectasis of right lung Code(s): J98.11 - ATELECTASIS Status: Acute (5) Generalized weakness Code(s): R53.1 - WEAKNESS Status: Acute (6) CAD (coronary artery disease) Code(s): I25.10 - ATHSCL HEART DISEASE OF [place] CORONARY ARTERY W/O ANG PCTRS Status: Chronic (7) Hypertension Code(s): I10 - ESSENTIAL (PRIMARY) HYPERTENSION Status: Chronic - Plan cont current plan of care, plan discussed w/ family, social work job titles, respiratory therapy, incentive spirometry Will do geodon today 10mg IM prn for agitation,.in the evening will start on Seroquel 25mg PO at 1800 Will continue with Supoortive therapy, lasix and neb treatments, PT/OT. Cardiology said no further intervention WIll continue with IV antibiotics for Pneumonia and Incentive spirometry. Tomorrow will discuss about Palliative/ Hospice. Will continue with [place] oxygen for Chronic Respiratory failure, clsoley Monitor. GI prophylaxis with Famotidine DVT prophylaxis pt is on Eliquis HTn is well controlled. - Discharge Day Encounter end time: 10:30 Review of Systems - Review of Systems Other: Unable to get any ROS. - Medications/Allergies Allergies/Adverse Reactions: Allergies Allergy/AdvReac Type Severity Reaction Status Date / Time meperidine HCl [From Demerol] AdvReac Verified 08/18/17 04:44 Medications: Current Medications Hydrocodone Bitart/Acetaminophen ([place] 5/325) 1 tab PO Q4H PRN PRN Reason: Moderate Pain (4-6) Albuterol/Ipratropium (Duoneb) 3 ml NEB [id number] [facility] Last Admin: 08/20/17 11:25 Dose: Not Given Aspirin (Aspirin Chewable) 81 mg PO DAILY [facility] Last Admin: 08/20/17 09:04 Dose: 81 mg Carvedilol (Coreg) 3.125 mg PO BID [facility] Last Admin: 08/20/17 09:05 Dose: 3.125 mg Enoxaparin Sodium (Lovenox) 40 mg SC 0900 [facility] Last Admin: 08/20/17 09:05 Dose: 40 mg Famotidine (Pepcid) 20 mg SLOW IVP DAILY [facility] Last Admin: 08/20/17 09:05 Dose: 20 mg Fluticasone Propionate (Flonase Nasal [place]) 0 gm NASAL DAILY [facility] Last Admin: 08/20/17 09:15 Dose: Not Given Folic Acid (Folvite) 1 mg PO DAILY [facility] Last Admin: 08/20/17 09:05 Dose: 1 mg Furosemide (Lasix) 40 mg SLOW IVP 0600,1200 [facility] Last Admin: 08/20/17 11:06 Dose: 40 mg Gabapentin (Neurontin) 300 mg PO BID [facility] Last Admin: 08/20/17 09:05 Dose: 300 mg Levofloxacin 500 mg/ Device 100 mls @ 100 mls/hr IVPB 1100 [facility] Last Admin: 08/20/17 11:06 Dose: 100 mls Lisinopril (Zestril) 2.5 mg PO DAILY [facility] Last Admin: 08/20/17 09:06 Dose: 2.5 mg Multivitamins (Theragran) 1 tab PO DAILY [facility] Last Admin: 08/20/17 09:06 Dose: 1 tab Polyethylene Glycol (Miralax) 17 gm PO DAILY PRN PRN Reason: Constipation Quetiapine Fumarate (Seroquel) 25 mg PO 1800 [facility] Sodium Chloride (Flush - Normal Saline) 10 ml IVF Q12HR [facility] Last Admin: 08/20/17 09:06 Dose: 10 ml Sodium Chloride (Flush - Normal Saline) 10 ml IVF PRN PRN PRN Reason: Saline Flush Last Admin: 08/20/17 06:28 Dose: 10 ml Spironolactone (Aldactone) 25 mg PO QAM-WM [facility] Last Admin: 08/20/17 09:04 Dose: 25 mg Ziprasidone (Geodon) 10 mg IM Q2H PRN PRN Reason: Agitation Last Admin: 08/20/17 12:24 Dose: 10 mg
[2017-08-21 05:12] LABS: Anion Gap 16 mmol/L (10-20); BUN (Urea Nitrogen) 36 mg/dL (8.4-25.7); Calc. Creatinine Clearance 39 mL/min (70-130); Calcium 9.1 mg/dL (7.8-10.44); Carbon Dioxide 25 mmol/L (23-31); Chloride 99 mmol/L (98-107); Estimated GFR-MDRD 43; Glucose 113 mg/dL (83-110); Potassium 3.8 mmol/L (3.5-5.1); Sodium 136 mmol/L (136-145)
[2017-08-21] MEDS: Furosemide 40 MG/4 ML VIAL SLOW IVP SCH ×2 (05:30→11:26)
[2017-08-21] MEDS: Fluticasone Propionate Nasal Spray 16 gm Bottle NASAL SCH (07:47)
--- NOTE | 2017-08-21 07:51 | RAD ---
CHEST 1 VIEW: HISTORY: Dyspnea. COMPARISON: 08/18/17. FINDINGS: Cardiac silhouette is magnified and enlarged. Pulmonary vasculature remains engorged with patchy bib asilar infiltrates that are similar in appearance to the prior exam. Mediastinum is midline. No jaclyn dence of pneumothorax. There are degenerative changes of each shoulder. IMPRESSION: Pulmonary vascular congestion and bibasilar infiltrates are unchanged from the previous exam. POS: [facility]
[2017-08-21] MEDS: Lisinopril 2.5 MG TAB PO SCH (07:53)
[2017-08-21] MEDS: Folic Acid 1 MG TAB PO SCH (07:54)
[2017-08-21] MEDS: Carvedilol 3.125 MG TAB PO SCH ×3 (07:54→21:00)
[2017-08-21] MEDS: Spironolactone 25 MG TAB PO SCH (07:54)
[2017-08-21] MEDS: Gabapentin 300 MG CAP PO SCH ×3 (07:54→21:00)
[2017-08-21] MEDS: Multivit, Therapeutic 1 TAB PO SCH (07:55)
[2017-08-21] MEDS: Enoxaparin Sodium 40 MG/0.4 ML SYRINGE SC SCH (07:57)
[2017-08-21] MEDS: Famotidine/PF 20 mg/2ml Vial SLOW IVP SCH (07:57)
--- NOTE | 2017-08-21 13:14 | PDOC.PN ---
- Subjective Encounter Start Date: 08/21/17 Encounter Start Time: 12:00 Patient is donavon much improved, more alert, working with Pt to stand up. discussed with family will plan for SNF placment instead of rehab. - Objective MAR Reviewed: Yes Vital Signs & Weight: Vital Signs (12 hours) Temp Pulse Resp BP BP Pulse Ox 08/21/17 11:00 98.1 F 87 16 96/70 92 L 08/21/17 08:00 97.1 F L 100 20 94 L 08/21/17 07:53 100 144/78 H 08/21/17 07:51 97.1 F L 100 20 144/78 H 94 L 08/21/17 07:21 91 14 96 08/21/17 06:00 97.5 F L 91 20 108/75 98 08/21/17 02:39 98 12 Weight Weight 172 lb 8 oz I&O: 08/20/17 08/21/17 08/22/17 06:59 06:59 06:59 Intake Total 1314 Balance 1314 Result Diagrams: 08/17/17 23:40 08/21/17 04:46 Radiology Reviewed by me: Yes (not much improvement of the pneumonia right lung) Phys Exam - Physical Examination HEENT: PERRLA, moist MMs Neck: no nodes, no JVD Respiratory: no rales, wheezing present Cardiovascular: RRR, no significant murmur Gastrointestinal: soft, non-tender Musculoskeletal: no edema, pulses present Neurological: non-focal, normal sensation Lymphatic: no nodes Psychiatric: normal affect, A&O x 3 Dx/Plan (1) Systolic CHF, acute on chronic Code(s): I50.23 - ACUTE ON CHRONIC SYSTOLIC (CONGESTIVE) HEART FAILURE Status : Acute (2) Pneumonia Code(s): J18.9 - PNEUMONIA, UNSPECIFIED ORGANISM Status: Acute Qualifiers: Laterality: right Lung location: lower lobe of lung (3) Acute metabolic encephalopathy Code(s): G93.41 - METABOLIC ENCEPHALOPATHY Status: Acute (4) Atelectasis of right lung Code(s): J98.11 - ATELECTASIS Status: Acute (5) Generalized weakness Code(s): R53.1 - WEAKNESS Status: Acute (6) CAD (coronary artery disease) Code(s): I25.10 - ATHSCL HEART DISEASE OF [place] CORONARY ARTERY W/O ANG PCTRS Status: Chronic (7) Hypertension Code(s): I10 - ESSENTIAL (PRIMARY) HYPERTENSION Status: Chronic - Plan cont current plan of care, plan discussed w/ family, continue antibiotics, PT/OT , healthcare social worker, respiratory therapy, incentive spirometry, DVT proph w/ lovenox Will continue with Supoortive therapy, lasix and neb treatments, PT/OT. Cardiology said no further intervention WIll continue with IV antibiotics for Pneumonia and Incentive spirometry. will discuss with CM for SNF placmement. Will continue with [place] oxygen for Chronic Respiratory failure, clsoley Monitor. GI prophylaxis with Famotidine DVT prophylaxis pt is on Eliquis HTn is well controlled. - Discharge Day Encounter end time: 12:35 Review of Systems - Review of Systems Constitutional: weakness Eyes: negative: Pain, Vision Change, Conjunctivae Inflammation, Eyelid Inflammation, Redness, Other ENT: negative: Ear Pain, Ear Discharge, Nose Pain, Nose Discharge, Nose Congestion, Mouth Pain, Mouth Swelling, Throat Pain, Throat Swelling, Other Respiratory: negative: Cough, Dry, Shortness of Breath, Hemoptysis, SOB with Excertion, Pleuritic Pain, Sputum, Wheezing Cardiovascular: negative: chest pain, palpitations, orthopnea, paroxysmal nocturnal dyspnea, edema, light headedness, other Gastrointestinal: negative: Nausea, Vomiting, Abdominal Pain, Diarrhea, Constipation, Melena, Hematochezia, Other Musculoskeletal: negative: Neck Pain, Shoulder Pain, Arm Pain, Back Pain, Hand Pain, Leg Pain, Foot Pain, Other Skin: negative: Rash, Lesions, Santiago, Bruising, Other Neurological: Weakness. negative: Numbness, Incoordination, Change in Speech, Confusion, Seizures, Other - Medications/Allergies Allergies/Adverse Reactions: Allergies Allergy/AdvReac Type Severity Reaction Status Date / Time meperidine HCl [From Demerol] AdvReac Verified 08/18/17 04:44 Medications: Current Medications Hydrocodone Bitart/Acetaminophen ([place] 5/325) 1 tab PO Q4H PRN PRN Reason: Moderate Pain (4-6) Albuterol/Ipratropium (Duoneb) 3 ml NEB Q4H PRN PRN Reason: SOB &/or Wheezing Aspirin (Aspirin Chewable) 81 mg PO DAILY [facility] Last Admin: 08/21/17 07:53 Dose: 81 mg Carvedilol (Coreg) 3.125 mg PO BID [facility] Last Admin: 08/21/17 07:54 Dose: 3.125 mg Enoxaparin Sodium (Lovenox) 40 mg SC 0900 [facility] Last Admin: 08/21/17 07:57 Dose: 40 mg Famotidine (Pepcid) 20 mg SLOW IVP DAILY [facility] Last Admin: 08/21/17 07:57 Dose: 20 mg Fluticasone Propionate (Flonase Nasal [place]) 0 gm NASAL DAILY [facility] Last Admin: 08/21/17 07:47 Dose: Not Given Folic Acid (Folvite) 1 mg PO DAILY [facility] Last Admin: 08/21/17 07:54 Dose: 1 mg Furosemide (Lasix) 40 mg SLOW IVP 0600,1200 [facility] Last Admin: 08/21/17 11:26 Dose: 40 mg Gabapentin (Neurontin) 300 mg PO BID [facility] Last Admin: 08/21/17 07:54 Dose: 300 mg Levofloxacin 500 mg/ Device 100 mls @ 100 mls/hr IVPB 1100 [facility] Last Admin: 08/21/17 11:25 Dose: 100 mls Lisinopril (Zestril) 2.5 mg PO DAILY [facility] Last Admin: 08/21/17 07:53 Dose: 2.5 mg Multivitamins (Theragran) 1 tab PO DAILY [facility] Last Admin: 08/21/17 07:55 Dose: 1 tab Polyethylene Glycol (Miralax) 17 gm PO DAILY PRN PRN Reason: Constipation Quetiapine Fumarate (Seroquel) 25 mg PO 1800 [facility] Last Admin: 08/20/17 17:40 Dose: Not Given Sodium Chloride (Flush - Normal Saline) 10 ml IVF Q12HR [facility] Last Admin: 08/21/17 07:57 Dose: 10 ml Sodium Chloride (Flush - Normal Saline) 10 ml IVF PRN PRN PRN Reason: Saline Flush Last Admin: 08/20/17 06:28 Dose: 10 ml Spironolactone (Aldactone) 25 mg PO QAM-WM [facility] Last Admin: 08/21/17 07:54 Dose: 25 mg Ziprasidone (Geodon) 10 mg IM Q2H PRN PRN Reason: Agitation Last Admin: 08/20/17 12:24 Dose: 10 mg
[2017-08-22] MEDS: Furosemide 40 MG/4 ML VIAL SLOW IVP SCH ×2 (05:38→13:34)
[2017-08-22] MEDS: Multivit, Therapeutic 1 TAB PO SCH ×2 (08:11→11:00)
[2017-08-22] MEDS: Gabapentin 300 MG CAP PO SCH ×3 (08:11→20:41)
[2017-08-22] MEDS: Enoxaparin Sodium 40 MG/0.4 ML SYRINGE SC SCH (08:11)
[2017-08-22] MEDS: Spironolactone 25 MG TAB PO SCH ×2 (08:11→10:59)
[2017-08-22] MEDS: Famotidine/PF 20 mg/2ml Vial SLOW IVP SCH ×2 (08:11→10:59)
[2017-08-22] MEDS: Folic Acid 1 MG TAB PO SCH ×2 (08:11→10:59)
[2017-08-22] MEDS: Carvedilol 3.125 MG TAB PO SCH ×2 (08:11→20:41)
[2017-08-22] MEDS: Lisinopril 2.5 MG TAB PO SCH (08:13)
[2017-08-22 09:23] LABS: #Eosinphils 0.1 thou/uL (0.0-0.7); #Lymphocytes 1.1 thou/uL (1.20-3.40); #Monocytes 1.7 thou/uL (0.11-0.59); #Neutrophils 14.2 thou/uL (1.40-6.50); %Eosinophils 0.3 % (0.0-10.0); %Lymphocytes 6.5 % (21.0-51.0); %Monocytes 10.1 % (0.0-10.0); Hemoglobin 12.6 g/dL (14.0-18.0); Mean Corpuscular HGB CONC 31.3 g/dL (32.0-36.0); Mean Corpuscular Volume 95.9 fl (80.0-94.0); Mean Platelet Volume 9.4 fL (7.4-10.4); Platelet Count 199 thou/uL (130-400); RBC Distribution Width 13.3 % (11.5-14.5); Red Blood Cell (RBC) Count 4.21 mill/uL (4.70-6.10); White Blood Cell (WBC) Count 17.1 thou/uL (4.8-10.8)
[2017-08-22 09:41] LABS: Anion Gap 12 mmol/L (10-20); BUN (Urea Nitrogen) 39 mg/dL (8.4-25.7); Calc. Creatinine Clearance 43 mL/min (70-130); Carbon Dioxide 30 mmol/L (23-31); Chloride 99 mmol/L (98-107); Estimated GFR-MDRD 47; Glucose 131 mg/dL (83-110); Potassium 3.2 mmol/L (3.5-5.1); Sodium 138 mmol/L (136-145)
--- NOTE | 2017-08-22 12:59 | PDOC.PN ---
- Subjective Encounter Start Date: 08/22/17 Encounter Start Time: 12:00 Subjective: is lethargic, follows simple verbal stimuli -: daughter at bedside - Objective MAR Reviewed: Yes Vital Signs & Weight: Vital Signs (12 hours) Temp Pulse Resp BP BP Pulse Ox 08/22/17 08:13 87 105/68 08/22/17 08:00 98.4 F 87 20 105/68 97 Weight Weight 174 lb I&O: 08/21/17 08/22/17 08/23/17 06:59 06:59 06:59 Output Total 750 Balance -750 Result Diagrams: 08/22/17 08:49 08/22/17 08:49 Phys Exam - Physical Examination HEENT: PERRLA, sclera anicteric dry mucosa Neck: no JVD, supple Respiratory: no wheezing, no rales rhonchi+ Cardiovascular: RRR, no significant murmur Gastrointestinal: soft, non-tender, positive bowel sounds Musculoskeletal: no edema, pulses present Neurological: non-focal, moves all 4 limbs Dx/Plan (1) Systolic CHF, acute on chronic Code(s): I50.23 - ACUTE ON CHRONIC SYSTOLIC (CONGESTIVE) HEART FAILURE Status : Acute Comment: with ef of around 25% (2) Pneumonia Code(s): J18.9 - PNEUMONIA, UNSPECIFIED ORGANISM Status: Acute Qualifiers: Laterality: right Lung location: lower lobe of lung (3) Demand ischemia of myocardium Code(s): I24.8 - OTHER FORMS OF ACUTE ISCHEMIC HEART DISEASE Status: Acute (4) Acute metabolic encephalopathy Code(s): G93.41 - METABOLIC ENCEPHALOPATHY Status: Acute (5) CAD (coronary artery disease) Code(s): I25.10 - ATHSCL HEART DISEASE OF [place] CORONARY ARTERY W/O ANG PCTRS Status: Chronic Qualifiers: Coronary Disease-Associated Artery/Lesion type: [place] artery [place] vs. transplanted heart: [place] heart Associated angina: without angina Qualified Code(s): I25.10 - Atherosclerotic heart disease of [place] coronary artery without angina pectoris (6) Hypertension Code(s): I10 - ESSENTIAL (PRIMARY) HYPERTENSION Status: Chronic Qualifiers: Hypertension type: essential hypertension Qualified Code(s): I10 - Essential (primary) hypertension (7) Ischemic cardiomyopathy Code(s): I25.5 - ISCHEMIC CARDIOMYOPATHY Status: Chronic Comment: not a candidate for intervention per cardio (8) Physical deconditioning Code(s): R53.81 - OTHER MALAISE Status: Acute (9) Dementia Code(s): F03.90 - UNSPECIFIED DEMENTIA WITHOUT BEHAVIORAL DISTURBANCE Status: Chronic Qualifiers: Dementia type: Alzheimer's disease Alzheimer's disease onset: unspecified onset Dementia behavioral disturbance: without behavioral disturbance Qualified Code(s): G30.9 - Alzheimer's disease, unspecified; F02.80 - Dementia in other diseases classified elsewhere without behavioral disturbance; F02.80 - Dementia in other diseases classified elsewhere without behavioral disturbance; F02.80 - Dementia in other diseases classified elsewhere without behavioral disturbance - Plan switch to oral lasix, clinically is dry and lethargic -: encourage po intake when more awake -: d/w daughter at bedside -: is on levaquin, asp, coreg, lisinopril and spironolactone -: watch for aspiration * . Review of Systems - Medications/Allergies Allergies/Adverse Reactions: Allergies Allergy/AdvReac Type Severity Reaction Status Date / Time meperidine HCl [From Demerol] AdvReac Verified 08/18/17 04:44 Medications: Current Medications Hydrocodone Bitart/Acetaminophen ([place] 5/325) 1 tab PO Q4H PRN PRN Reason: Moderate Pain (4-6) Albuterol/Ipratropium (Duoneb) 3 ml NEB Q4H PRN PRN Reason: SOB &/or Wheezing Aspirin (Aspirin Chewable) 81 mg PO DAILY [facility] Last Admin: 08/22/17 10:59 Dose: Not Given Carvedilol (Coreg) 3.125 mg PO BID [facility] Last Admin: 08/22/17 08:11 Dose: Not Given Enoxaparin Sodium (Lovenox) 40 mg SC 0900 [facility] Last Admin: 08/22/17 08:11 Dose: 40 mg Famotidine (Pepcid) 20 mg SLOW IVP DAILY [facility] Last Admin: 08/22/17 10:59 Dose: Not Given Fluticasone Propionate (Flonase Nasal [place]) 0 gm NASAL DAILY [facility] Last Admin: 08/21/17 07:47 Dose: Not Given Folic Acid (Folvite) 1 mg PO DAILY [facility] Last Admin: 08/22/17 10:59 Dose: Not Given Furosemide (Lasix) 40 mg PO DAILY[facility] Gabapentin (Neurontin) 300 mg PO BID [facility] Last Admin: 08/22/17 11:00 Dose: Not Given Levofloxacin 500 mg/ Device 100 mls @ 100 mls/hr IVPB 1100 [facility] Last Admin: 08/21/17 11:25 Dose: 100 mls Lisinopril (Zestril) 2.5 mg PO DAILY [facility] Last Admin: 08/22/17 08:13 Dose: Not Given Multivitamins (Theragran) 1 tab PO DAILY [facility] Last Admin: 08/22/17 11:00 Dose: Not Given Polyethylene Glycol (Miralax) 17 gm PO DAILY PRN PRN Reason: Constipation Quetiapine Fumarate (Seroquel) 25 mg PO 1800 [facility] Last Admin: 08/21/17 18:00 Dose: 25 mg Sodium Chloride (Flush - Normal Saline) 10 ml IVF Q12HR [facility] Last Admin: 08/22/17 08:13 Dose: 10 ml Sodium Chloride (Flush - Normal Saline) 10 ml IVF PRN PRN PRN Reason: Saline Flush Last Admin: 08/20/17 06:28 Dose: 10 ml Spironolactone (Aldactone) 25 mg PO QAM-WM [facility] Last Admin: 08/22/17 10:59 Dose: Not Given Ziprasidone (Geodon) 10 mg IM Q2H PRN PRN Reason: Agitation Last Admin: 08/20/17 12:24 Dose: 10 mg
[2017-08-22] MEDS: Fluticasone Propionate Nasal Spray 16 gm Bottle NASAL SCH (14:01)
[2017-08-23 05:34] LABS: Anion Gap 16 mmol/L (10-20); BUN (Urea Nitrogen) 37 mg/dL (8.4-25.7); Calc. Creatinine Clearance 47 mL/min (70-130); Carbon Dioxide 28 mmol/L (23-31); Chloride 99 mmol/L (98-107); Estimated GFR-MDRD 54; Glucose 100 mg/dL (83-110); Potassium 3.2 mmol/L (3.5-5.1); Sodium 140 mmol/L (136-145)
[2017-08-23] MEDS: Fluticasone Propionate Nasal Spray 16 gm Bottle NASAL SCH (09:13)
[2017-08-23] MEDS: Multivit, Therapeutic 1 TAB PO SCH (09:14)
[2017-08-23] MEDS: Folic Acid 1 MG TAB PO SCH (09:14)
[2017-08-23] MEDS: Spironolactone 25 MG TAB PO SCH (09:15)
[2017-08-23] MEDS: Gabapentin 300 MG CAP PO SCH ×2 (09:15→20:33)
[2017-08-23] MEDS: Furosemide 40 MG TAB PO SCH (09:22)
[2017-08-23] MEDS: Enoxaparin Sodium 40 MG/0.4 ML SYRINGE SC SCH (09:23)
[2017-08-23] MEDS: Carvedilol 3.125 MG TAB PO SCH ×2 (09:23→20:32)
[2017-08-23] MEDS: Lisinopril 2.5 MG TAB PO SCH (09:23)
[2017-08-23] MEDS: Famotidine/PF 20 mg/2ml Vial SLOW IVP SCH (09:23)
--- NOTE | 2017-08-23 13:04 | PDOC.PN ---
- Subjective Encounter Start Date: 08/23/17 Encounter Start Time: 13:00 Subjective: f/u for CHF and PNA on Lasix, Spironolactone and Levaquin. Overall improved -: but remains confused per daughter. Minimally ambulating with PT. Appetite -: poor. - Objective MAR Reviewed: Yes Vital Signs & Weight: Vital Signs (12 hours) Temp Pulse Resp BP BP Pulse Ox 08/23/17 09:23 90 96/63 08/23/17 08:00 97.5 F L 90 18 9663 94 L 08/23/17 05:10 97.8 F 94 16 102/67 97 Weight Weight 169 lb 11.2 oz I&O: 08/22/17 08/23/17 08/24/17 06:59 06:59 06:59 Intake Total 35 Output Total 750 Balance -750 35 Result Diagrams: 08/22/17 08:49 08/23/17 04:13 Radiology Reviewed by me: Yes (PCXR - bibasilar infiltrates) Phys Exam - Physical Examination alert, oriented to person HEENT: PERRLA, oral pharynx no lesions Neck: no JVD, supple diminished in bases Cardiovascular: RRR Gastrointestinal: soft, non-tender, no distention, positive bowel sounds Musculoskeletal: no edema, pulses present Neurological: normal sensation, moves all 4 limbs A x O x 1 Skin: normal turgor, cap refill <2 seconds Dx/Plan (1) Systolic CHF, acute on chronic Code(s): I50.23 - ACUTE ON CHRONIC SYSTOLIC (CONGESTIVE) HEART FAILURE Status : Acute Comment: with ef of around 25%, Lasix 40mg daily and Spironolactone 25mg daily (2) Pneumonia Code(s): J18.9 - PNEUMONIA, UNSPECIFIED ORGANISM Status: Acute Qualifiers: Laterality: right Lung location: lower lobe of lung Comment: Continue Levaquin 500mg daily (3) Acute metabolic encephalopathy Code(s): G93.41 - METABOLIC ENCEPHALOPATHY Status: Acute Comment: Multifactorial given age, deconditioning, metabolic influence (4) Atelectasis of right lung Code(s): J98.11 - ATELECTASIS Status: Acute (5) Physical deconditioning Code(s): R53.81 - OTHER MALAISE Status: Acute Comment: PT for mobilization, CM assisting with SNF options (6) Dementia Code(s): F03.90 - UNSPECIFIED DEMENTIA WITHOUT BEHAVIORAL DISTURBANCE Status: Chronic Qualifiers: Dementia type: Alzheimer's disease Alzheimer's disease onset: unspecified onset Dementia behavioral disturbance: without behavioral disturbance Qualified Code(s): G30.9 - Alzheimer's disease, unspecified; F02.80 - Dementia in other diseases classified elsewhere without behavioral disturbance; F02.80 - Dementia in other diseases classified elsewhere without behavioral disturbance; F02.80 - Dementia in other diseases classified elsewhere without behavioral disturbance (7) Generalized weakness Code(s): R53.1 - WEAKNESS Status: Chronic Comment: SNF options, fall risk precautions, PT for mobilization (8) Hypertension Code(s): I10 - ESSENTIAL (PRIMARY) HYPERTENSION Status: Chronic Qualifiers: Hypertension type: essential hypertension Qualified Code(s): I10 - Essential (primary) hypertension - Plan plan discussed w/ family, continue antibiotics, PT/OT, social work administrator, respiratory therapy, DVT proph w/SCDs Stable overall -: Continue Levaquin 500mg daily -: Continue Lasix and Spironolactone -: KCL 40meq BID -: PT for mobilization * AM lab: BMP, CBC * CM for SNF options
[2017-08-23] MEDS ORDERED: Potassium Chloride 20 MEQ TAB PO SCH (14:00)
[2017-08-23] MEDS: Potassium Chloride 20 MEQ TAB PO SCH (19:17)
[2017-08-24 05:30] LABS: Anion Gap 22 mmol/L (10-20); BUN (Urea Nitrogen) 56 mg/dL (8.4-25.7); Calc. Creatinine Clearance 36 mL/min (70-130); Calcium 9.4 mg/dL (7.8-10.44); Carbon Dioxide 25 mmol/L (23-31); Chloride 98 mmol/L (98-107); Estimated GFR-MDRD 40; Glucose 109 mg/dL (83-110); Potassium 3.9 mmol/L (3.5-5.1); Sodium 141 mmol/L (136-145)
[2017-08-24 05:40] LABS: Band 3 % (5-11); Hemoglobin 13.2 g/dL (14.0-18.0); Lymphocytes 11 % (21-51); MDiff Complete? YES; Mean Corpuscular HGB CONC 30.6 g/dL (32.0-36.0); Mean Corpuscular Hemoglobin 29.4 pg (27.0-31.0); Mean Corpuscular Volume 96.1 fl (80.0-94.0); Mean Platelet Volume 9.5 fL (7.4-10.4); Monocytes 8 % (0-10); Neutrophil 78 % (42-75); Platelet Count 258 thou/uL (130-400); RBC Distribution Width 13.7 % (11.5-14.5); Red Blood Cell (RBC) Count 4.48 mill/uL (4.70-6.10); White Blood Cell (WBC) Count 14.2 thou/uL (4.8-10.8)
[2017-08-24] MEDS: Famotidine/PF 20 mg/2ml Vial SLOW IVP SCH (08:21)
[2017-08-24] MEDS: Fluticasone Propionate Nasal Spray 16 gm Bottle NASAL SCH (08:21)
[2017-08-24] MEDS: Spironolactone 25 MG TAB PO SCH (08:21)
[2017-08-24] MEDS: Gabapentin 300 MG CAP PO SCH ×2 (08:22→20:16)
[2017-08-24] MEDS: Potassium Chloride 20 MEQ TAB PO SCH ×2 (08:23→18:29)
[2017-08-24] MEDS: Furosemide 40 MG TAB PO SCH (08:26)
[2017-08-24] MEDS: Enoxaparin Sodium 40 MG/0.4 ML SYRINGE SC SCH (08:28)
[2017-08-24] MEDS: Carvedilol 3.125 MG TAB PO SCH ×2 (13:15→20:08)
[2017-08-24] MEDS: Folic Acid 1 MG TAB PO SCH (13:21)
[2017-08-24] MEDS: Lisinopril 2.5 MG TAB PO SCH (13:21)
[2017-08-24] MEDS: Multivit, Therapeutic 1 TAB PO SCH (13:22)
--- NOTE | 2017-08-24 13:37 | PDOC.PN ---
- Subjective Encounter Start Date: 08/24/17 Encounter Start Time: 13:30 Subjective: f/u for CHF and PNA on current Lasix, Spironolactone and Levaquin. -: Resp status improved per nursing. Less agitated. - Objective MAR Reviewed: Yes Vital Signs & Weight: Vital Signs (12 hours) Temp Pulse Resp BP BP Pulse Ox 08/24/17 13:21 106 H 106/82 08/24/17 12:10 97.6 F 106 H 32 H 116/81 99 08/24/17 08:00 98.1 F 107 H 26 H 108/70 100 08/24/17 04:49 94 L 08/24/17 04:00 97.7 F 98 20 118/83 93 L Weight Weight 168 lb 8 oz I&O: 08/23/17 08/24/17 08/25/17 06:59 06:59 06:59 Intake Total 35 10 Balance 35 10 Result Diagrams: 08/24/17 04:13 08/24/17 04:13 Additional Labs: Laboratory Tests 08/22/17 08/23/17 08:49 04:13 Potassium 3.2 L 3.2 L Creatinine 1.44 H 1.27 Phys Exam - Physical Examination Constitutional: NAD HEENT: PERRLA, oral pharynx no lesions Neck: no JVD, supple diminished in bases Cardiovascular: RRR Gastrointestinal: soft, non-tender, no distention, positive bowel sounds Musculoskeletal: no edema, pulses present Neurological: normal sensation, moves all 4 limbs Skin: normal turgor, cap refill <2 seconds Dx/Plan (1) Systolic CHF, acute on chronic Code(s): I50.23 - ACUTE ON CHRONIC SYSTOLIC (CONGESTIVE) HEART FAILURE Status : Acute Comment: EF 25%, Lasix 40mg daily and Spironolactone 25mg daily (2) Pneumonia Code(s): J18.9 - PNEUMONIA, UNSPECIFIED ORGANISM Status: Acute Qualifiers: Laterality: right Lung location: lower lobe of lung Comment: Continue Levaquin 500mg daily (3) Acute metabolic encephalopathy Code(s): G93.41 - METABOLIC ENCEPHALOPATHY Status: Acute Comment: Multifactorial given age, deconditioning, metabolic influence (4) Atelectasis of right lung Code(s): J98.11 - ATELECTASIS Status: Acute (5) Physical deconditioning Code(s): R53.81 - OTHER MALAISE Status: Acute Comment: PT for mobilization, CM assisting with SNF options (6) Dementia Code(s): F03.90 - UNSPECIFIED DEMENTIA WITHOUT BEHAVIORAL DISTURBANCE Status: Chronic Qualifiers: Dementia type: Alzheimer's disease Alzheimer's disease onset: unspecified onset Dementia behavioral disturbance: without behavioral disturbance Qualified Code(s): G30.9 - Alzheimer's disease, unspecified; F02.80 - Dementia in other diseases classified elsewhere without behavioral disturbance; F02.80 - Dementia in other diseases classified elsewhere without behavioral disturbance; F02.80 - Dementia in other diseases classified elsewhere without behavioral disturbance (7) Generalized weakness Code(s): R53.1 - WEAKNESS Status: Chronic Comment: SNF options, fall risk precautions, PT for mobilization (8) Hypertension Code(s): I10 - ESSENTIAL (PRIMARY) HYPERTENSION Status: Chronic Qualifiers: Hypertension type: essential hypertension Qualified Code(s): I10 - Essential (primary) hypertension - Plan continue antibiotics, PT/OT, neonatal social worker, DVT proph w/SCDs Stable overall -: Continue pulmonary support -: Change Levaquin 500mg po daily -: PT for mobilization -: AM lab: BMP * .
[2017-08-24] MEDS: HYDROcodone/Acetaminophen 5/325 mg Tablet PO PRN (20:14)
[2017-08-25 05:17] LABS: Anion Gap 18 mmol/L (10-20); BUN (Urea Nitrogen) 76 mg/dL (8.4-25.7); Calc. Creatinine Clearance 30 mL/min (70-130); Calcium 9.5 mg/dL (7.8-10.44); Carbon Dioxide 24 mmol/L (23-31); Chloride 104 mmol/L (98-107); Estimated GFR-MDRD 33; Glucose 128 mg/dL (83-110); Potassium 4.8 mmol/L (3.5-5.1); Sodium 141 mmol/L (136-145)
[2017-08-25] MEDS: HYDROcodone/Acetaminophen 5/325 mg Tablet PO PRN (05:56)
--- NOTE | 2017-08-25 08:41 | PDOC.PN ---
- Subjective Encounter Start Date: 08/25/17 Encounter Start Time: 08:10 Subjective: f/u for CHF, JORDY and encephalopathy. Daughter reports pt agitated and -: did not sleep well overnight. + Hallucinations and fidgeting. - Objective MAR Reviewed: Yes Vital Signs & Weight: Vital Signs (12 hours) Temp Pulse Resp BP Pulse Ox 08/25/17 07:47 97.4 F L 90 20 97/68 100 08/25/17 04:00 97.6 F 62 18 127/67 97 08/25/17 00:00 97.8 F 95 16 86/45 L 96 Weight Weight 168 lb 1.6 oz I&O: 08/24/17 08/25/17 08/26/17 06:59 06:59 06:59 Intake Total 10 40 Balance 10 40 Result Diagrams: 08/24/17 04:13 08/25/17 04:18 Additional Labs: Laboratory Tests 08/22/17 08/23/17 08/24/17 08:49 04:13 04:13 Potassium 3.2 L 3.2 L Creatinine 1.44 H 1.27 1.66 H Phys Exam - Physical Examination mild distress, agitated HEENT: PERRLA, oral pharynx no lesions Neck: no JVD, supple Respiratory: no wheezing, clear to auscultation bilateral Cardiovascular: RRR Gastrointestinal: soft, non-tender, no distention, positive bowel sounds Musculoskeletal: no edema, pulses present Neurological: moves all 4 limbs A x O x 1 Skin: normal turgor, cap refill <2 seconds Dx/Plan (1) Systolic CHF, acute on chronic Code(s): I50.23 - ACUTE ON CHRONIC SYSTOLIC (CONGESTIVE) HEART FAILURE Status : Acute Comment: EF 25%, Lasix 40mg daily and Spironolactone 25mg daily, hold diuretics due to JORDY (2) Pneumonia Code(s): J18.9 - PNEUMONIA, UNSPECIFIED ORGANISM Status: Acute Qualifiers: Laterality: right Lung location: lower lobe of lung Comment: Continue Levaquin 250mg daily (3) Acute metabolic encephalopathy Code(s): G93.41 - METABOLIC ENCEPHALOPATHY Status: Acute Comment: Multifactorial given age, deconditioning, metabolic influence, Seroquel and Geodon, encourage consistent sleep patterns, family support at bedside (4) Atelectasis of right lung Code(s): J98.11 - ATELECTASIS Status: Acute (5) Physical deconditioning Code(s): R53.81 - OTHER MALAISE Status: Acute Comment: PT for mobilization, CM assisting with SNF options (6) Dementia Code(s): F03.90 - UNSPECIFIED DEMENTIA WITHOUT BEHAVIORAL DISTURBANCE Status: Chronic Qualifiers: Dementia type: Alzheimer's disease Alzheimer's disease onset: unspecified onset Dementia behavioral disturbance: without behavioral disturbance Qualified Code(s): G30.9 - Alzheimer's disease, unspecified; F02.80 - Dementia in other diseases classified elsewhere without behavioral disturbance; F02.80 - Dementia in other diseases classified elsewhere without behavioral disturbance; F02.80 - Dementia in other diseases classified elsewhere without behavioral disturbance (7) Generalized weakness Code(s): R53.1 - WEAKNESS Status: Chronic Comment: SNF options, fall risk precautions, PT for mobilization (8) Hypertension Code(s): I10 - ESSENTIAL (PRIMARY) HYPERTENSION Status: Chronic Qualifiers: Hypertension type: essential hypertension Qualified Code(s): I10 - Essential (primary) hypertension (9) JORDY (acute kidney injury) Code(s): N17.9 - ACUTE KIDNEY FAILURE, UNSPECIFIED Status: Acute Comment: Modify current medication regimen, hold diuretics and Lisinopril, watch renal function closely - Plan plan discussed w/ family, continue antibiotics, PT/OT, elementary school social worker, DVT proph w/SCDs Continue supportive mgmt -: Continue Seroquel -: Hold Lasix and Spironolactone due to JORDY -: D/C KCL -: Hold Lisinopril * AM lab: BMP, CBC * Approved for [facility] when medically stabilized * Code Status: DNR
[2017-08-25] MEDS: Enoxaparin Sodium 40 MG/0.4 ML SYRINGE SC SCH (09:35)
[2017-08-25] MEDS: Famotidine/PF 20 mg/2ml Vial SLOW IVP SCH (09:35)
[2017-08-25] MEDS: Multivit, Therapeutic 1 TAB PO SCH (09:52)
[2017-08-25] MEDS: Gabapentin 300 MG CAP PO SCH ×2 (09:52→20:02)
[2017-08-25] MEDS: Spironolactone 25 MG TAB PO SCH (09:54)
[2017-08-25] MEDS: Carvedilol 3.125 MG TAB PO SCH ×2 (09:54→20:02)
[2017-08-25] MEDS: Fluticasone Propionate Nasal Spray 16 gm Bottle NASAL SCH (09:54)
[2017-08-25] MEDS: Folic Acid 1 MG TAB PO SCH (09:54)
[2017-08-25] MEDS: Furosemide 40 MG TAB PO SCH (09:55)
[2017-08-25] MEDS: Potassium Chloride 20 MEQ TAB PO SCH (09:55)
[2017-08-25] MEDS ORDERED: Sodium Chloride 0.9% 1,000 ML IV SCH (13:00)
[2017-08-25] MEDS ORDERED: Sterile Water 10 ML VIAL FS PRN (19:57)
[2017-08-25] MEDS: Ziprasidone 20 MG VIAL IM PRN ×2 (20:02→22:16)
[2017-08-25] MEDS ORDERED: Haloperidol Lactate 5 MG/ML VIAL IM SCH (21:15)
[2017-08-26] MEDS: Ziprasidone 20 MG VIAL IM PRN ×2 (04:25→09:52)
[2017-08-26 04:58] LABS: Anion Gap 25 mmol/L (10-20); BUN (Urea Nitrogen) 94 mg/dL (8.4-25.7); Calc. Creatinine Clearance 25 mL/min (70-130); Calcium 9.2 mg/dL (7.8-10.44); Carbon Dioxide 18 mmol/L (23-31); Chloride 106 mmol/L (98-107); Estimated GFR-MDRD 26; Glucose 86 mg/dL (83-110); Potassium 6.1 mmol/L (3.5-5.1); Sodium 143 mmol/L (136-145)
[2017-08-26 05:17] LABS: Band 3 % (5-11); Lymphocytes 5 % (21-51); MDiff Complete? YES; Mean Corpuscular HGB CONC 31.3 g/dL (32.0-36.0); Mean Corpuscular Hemoglobin 29.8 pg (27.0-31.0); Mean Corpuscular Volume 95.3 fl (80.0-94.0); Mean Platelet Volume 9.6 fL (7.4-10.4); Monocytes 7 % (0-10); Neutrophil 85 % (42-75); Platelet Count 229 thou/uL (130-400); RBC Distribution Width 13.7 % (11.5-14.5); Red Blood Cell (RBC) Count 4.69 mill/uL (4.70-6.10); White Blood Cell (WBC) Count 16.5 thou/uL (4.8-10.8)
[2017-08-26] MEDS: Carvedilol 3.125 MG TAB PO SCH ×2 (08:21→20:33)
[2017-08-26] MEDS: Folic Acid 1 MG TAB PO SCH (08:22)
[2017-08-26] MEDS: Fluticasone Propionate Nasal Spray 16 gm Bottle NASAL SCH (08:22)
[2017-08-26] MEDS: Gabapentin 300 MG CAP PO SCH ×2 (08:22→20:33)
[2017-08-26] MEDS: Famotidine/PF 20 mg/2ml Vial SLOW IVP SCH (08:22)
[2017-08-26] MEDS: Multivit, Therapeutic 1 TAB PO SCH (08:22)
--- NOTE | 2017-08-26 10:53 | PDOC.PN ---
- Subjective Encounter Start Date: 08/26/17 Encounter Start Time: 09:00 Subjective: nsg notes rev, loren ovn, pt is nonverbal for me today. son + dtr at bedside -: state they want their father to be comfortable but still receive as much -: treatment as reasonable. - Objective Vital Signs & Weight: Vital Signs (12 hours) Temp Pulse Resp BP Pulse Ox 08/26/17 08:00 98.7 F 100 20 94 L 08/26/17 07:24 98.7 F 100 20 107/74 94 L 08/26/17 04:35 98.2 F 106 H 34 H 94/57 L 99 08/26/17 00:00 97.9 F 95 24 H 96/62 98 Weight Weight 168 lb 6.4 oz I&O: 08/25/17 08/26/17 08/27/17 06:59 06:59 06:59 Intake Total 40 0 Balance 40 0 Result Diagrams: 08/26/17 04:24 08/26/17 10:42 Phys Exam - Physical Examination HEENT: sclera anicteric dry mm coarse throughout without overt wheezing, rales, or rhonchi Cardiovascular: RRR, no significant murmur, no rub Gastrointestinal: soft, positive bowel sounds Musculoskeletal: pulses present Dx/Plan (1) Hyperkalemia Code(s): E87.5 - HYPERKALEMIA Status: Acute Comment: closely monitor, maintain on telemetry (2) JORDY (acute kidney injury) Code(s): N17.9 - ACUTE KIDNEY FAILURE, UNSPECIFIED Status: Acute Comment: Modify current medication regimen, hold diuretics and Lisinopril, watch renal function closely. Anticipate difficulty with diuresuis (3) Acute metabolic encephalopathy Code(s): G93.41 - METABOLIC ENCEPHALOPATHY Status: Acute Comment: Multifactorial given age, deconditioning, metabolic influence, Seroquel Patient requesting avoiding any SQ medications as thye have observed the patient to have increased agitation and discomfort (4) Demand ischemia of myocardium Code(s): I24.8 - OTHER FORMS OF ACUTE ISCHEMIC HEART DISEASE Status: Acute (5) Pneumonia Code(s): J18.9 - PNEUMONIA, UNSPECIFIED ORGANISM Status: Acute Qualifiers: Laterality: right Lung location: lower lobe of lung Comment: Continue Levaquin 250mg daily (6) Ischemic cardiomyopathy Code(s): I25.5 - ISCHEMIC CARDIOMYOPATHY Status: Chronic Comment: not a candidate for intervention per cardio (7) Systolic CHF, acute on chronic Code(s): I50.23 - ACUTE ON CHRONIC SYSTOLIC (CONGESTIVE) HEART FAILURE Status : Acute Comment: EF 25%, Lasix 40mg daily and Spironolactone 25mg daily, hold diuretics due to JORDY - Plan cont current plan of care, plan discussed w/ family Please see advanced care plan note as well Review of Systems - Medications/Allergies Allergies/Adverse Reactions: Allergies Allergy/AdvReac Type Severity Reaction Status Date / Time meperidine HCl [From Demerol] AdvReac Verified 08/18/17 04:44 Medications: Current Medications Albuterol/Ipratropium (Duoneb) 3 ml NEB Q4H PRN PRN Reason: SOB &/or Wheezing Last Admin: 08/23/17 22:33 Dose: 3 ml Aspirin (Aspirin Chewable) 81 mg PO DAILY [facility] Last Admin: 08/27/17 07:57 Dose: Not Given Carvedilol (Coreg) 3.125 mg PO BID [facility] Last Admin: 08/27/17 20:45 Dose: Not Given Enoxaparin Sodium (Lovenox) 40 mg SC 0900 [facility] Last Admin: 08/27/17 07:57 Dose: Not Given Famotidine (Pepcid) 20 mg SLOW IVP DAILY [facility] Last Admin: 08/27/17 08:48 Dose: 20 mg Fentanyl (Sublimaze) 12.5 mcg SLOW IVP Q4H PRN PRN Reason: Pain Last Admin: 08/27/17 11:13 Dose: 12.5 mcg Fluticasone Propionate (Flonase Nasal [place]) 0 gm NASAL DAILY [facility] Last Admin: 08/27/17 07:58 Dose: Not Given Folic Acid (Folvite) 1 mg PO DAILY [facility] Last Admin: 08/27/17 07:58 Dose: Not Given Gabapentin (Neurontin) 300 mg PO BID [facility] Last Admin: 08/27/17 20:45 Dose: Not Given Levofloxacin (Levaquin) 250 mg PO 0600 [facility] Last Admin: 08/27/17 05:54 Dose: Not Given Lorazepam (Ativan) 0.25 mg SLOW IVP Q3H PRN PRN Reason: Anxiety/Agitation Last Admin: 08/27/17 13:52 Dose: 0.25 mg Morphine Sulfate (Morphine) 2 mg SLOW IVP Q4H PRN PRN Reason: Pain Last Admin: 08/27/17 20:39 Dose: 2 mg Multivitamins (Theragran) 1 tab PO DAILY [facility] Last Admin: 08/27/17 07:59 Dose: Not Given Polyethylene Glycol (Miralax) 17 gm PO DAILY PRN PRN Reason: Constipation Quetiapine Fumarate (Seroquel) 25 mg PO 1800 [facility] Last Admin: 08/27/17 16:16 Dose: Not Given Sodium Chloride (Flush - Normal Saline) 10 ml IVF Q12HR [facility] Last Admin: 08/27/17 20:39 Dose: 10 ml Sodium Chloride (Flush - Normal Saline) 10 ml IVF PRN PRN PRN Reason: Saline Flush Last Admin: 08/27/17 01:25 Dose: 10 ml Spironolactone (Aldactone) 25 mg PO QAM-WM [facility] Last Admin: 08/25/17 09:54 Dose: Not Given Sterile Water (Water For Injection) 1.2 ml FS PRN PRN PRN Reason: GEODON RECONSTITUTION Last Admin: 08/25/17 20:02 Dose: 1.2 ml
[2017-08-26 11:11] LABS: Anion Gap 21 mmol/L (10-20); BUN (Urea Nitrogen) 105 mg/dL (8.4-25.7); Calc. Creatinine Clearance 23 mL/min (70-130); Calcium 9.4 mg/dL (7.8-10.44); Carbon Dioxide 22 mmol/L (23-31); Chloride 107 mmol/L (98-107); Estimated GFR-MDRD 24; Glucose 91 mg/dL (83-110); Potassium 5.3 mmol/L (3.5-5.1); Sodium 145 mmol/L (136-145)
[2017-08-26] MEDS: Lorazepam 2 MG/ML VIAL SLOW IVP PRN ×4 (12:06→22:27)
[2017-08-26 12:38] VITALS: BMI 27.1
[2017-08-26] MEDS: Fentanyl 100 MCG/2 ML VIAL SLOW IVP PRN (14:09)
[2017-08-26] MEDS: Enoxaparin Sodium 40 MG/0.4 ML SYRINGE SC SCH (14:57)
--- NOTE | 2017-08-26 20:08 | PDOC.EVN ---
Event Note - Event Note Event Note: Advanced Care Planning Note Discussed with patient's daughter and son at patient's bedside Dx: acute CHF, ischemic cardiomyopathy, JORDY Discussed with patient's family the patient's Dx as above and his guarded prognosis. Also discussed the concern for fluid overload and difficulty with diuresis with progressive JORDY. Cautious hydration. Patient's family also requesting increased focus on pain and discomfort. As such, will trial low dose ativan in lieu of Geodon and low dose IV pain regimen as he is currently NPO secondary to aspiration risk with PO intake. Greater than 20 minutes spent discussing plan of care with patient and family. Palliative care consult requested.
[2017-08-27] MEDS: Lorazepam 2 MG/ML VIAL SLOW IVP PRN ×4 (01:25→22:51)
[2017-08-27] MEDS: Enoxaparin Sodium 40 MG/0.4 ML SYRINGE SC SCH (07:57)
[2017-08-27] MEDS: Carvedilol 3.125 MG TAB PO SCH ×2 (07:57→20:45)
[2017-08-27] MEDS: Folic Acid 1 MG TAB PO SCH (07:58)
[2017-08-27] MEDS: Fluticasone Propionate Nasal Spray 16 gm Bottle NASAL SCH (07:58)
[2017-08-27] MEDS: Gabapentin 300 MG CAP PO SCH ×2 (07:59→20:45)
[2017-08-27] MEDS: Multivit, Therapeutic 1 TAB PO SCH (07:59)
[2017-08-27] MEDS: Famotidine/PF 20 mg/2ml Vial SLOW IVP SCH (08:48)
[2017-08-27] MEDS: Fentanyl 100 MCG/2 ML VIAL SLOW IVP PRN (11:13)
--- NOTE | 2017-08-27 11:16 | PDOC.PN ---
- Subjective Encounter Start Date: 08/27/17 Encounter Start Time: 11:15 Subjective: nsg notes rev, loren ovn, dtr @ bedside -: pt was able to "rest" overnight and improved respiratory status -: this AM again having inc RR - Objective Vital Signs & Weight: Vital Signs (12 hours) Temp Pulse Resp BP Pulse Ox 08/27/17 08:00 98.6 F 97 20 102/71 98 08/27/17 04:00 98.4 F 89 26 H 101/71 100 08/27/17 00:00 98.1 F 83 18 120/76 98 Weight Admit Weight 173 lb Weight 167 lb 11.2 oz I&O: 08/26/17 08/27/17 08/28/17 06:59 06:59 06:59 Intake Total 0 60.25 Balance 0 60.25 Result Diagrams: 08/26/17 04:24 08/26/17 10:42 Phys Exam - Physical Examination dry mm coarse and diminished throughout Cardiovascular: RRR, no significant murmur, no rub Gastrointestinal: soft, positive bowel sounds Musculoskeletal: pulses present Dx/Plan (1) JORDY (acute kidney injury) Code(s): N17.9 - ACUTE KIDNEY FAILURE, UNSPECIFIED Status: Acute Comment: Modify current medication regimen, hold diuretics and Lisinopril, watch renal function closely. Anticipate difficulty with diuresuis (2) Acute metabolic encephalopathy Code(s): G93.41 - METABOLIC ENCEPHALOPATHY Status: Acute Comment: Multifactorial given age, deconditioning, metabolic influence, Seroquel Patient requesting avoiding any SQ medications as thye have observed the patient to have increased agitation and discomfort (3) Demand ischemia of myocardium Code(s): I24.8 - OTHER FORMS OF ACUTE ISCHEMIC HEART DISEASE Status: Acute (4) Hyperkalemia Code(s): E87.5 - HYPERKALEMIA Status: Acute Comment: closely monitor, maintain on telemetry (5) Pneumonia Code(s): J18.9 - PNEUMONIA, UNSPECIFIED ORGANISM Status: Acute Qualifiers: Laterality: right Lung location: lower lobe of lung Comment: Continue Levaquin 250mg daily (6) Ischemic cardiomyopathy Code(s): I25.5 - ISCHEMIC CARDIOMYOPATHY Status: Chronic Comment: not a candidate for intervention per cardio (7) Systolic CHF, acute on chronic Code(s): I50.23 - ACUTE ON CHRONIC SYSTOLIC (CONGESTIVE) HEART FAILURE Status : Acute Comment: EF 25%, Lasix 40mg daily and Spironolactone 25mg daily, hold diuretics due to JORDY - Plan cont current plan of care, plan discussed w/ family Discussed with palliative care consult. Will trial morphine for aid in -: pain and respiratory management as well * .
[2017-08-27] MEDS: Morphine 2 MG/ML SYRINGE SLOW IVP PRN ×2 (16:57→20:39)
[2017-08-27] MEDS ORDERED: Sodium Chloride 0.9% 250 ML IV SCH (21:45)
[2017-08-28] MEDS: Morphine 2 MG/ML SYRINGE SLOW IVP PRN ×3 (00:40→17:33)
[2017-08-28 05:41] LABS: Anion Gap 21 mmol/L (10-20); BUN (Urea Nitrogen) 116 mg/dL (8.4-25.7); Calc. Creatinine Clearance 24 mL/min (70-130); Calcium 8.7 mg/dL (7.8-10.44); Carbon Dioxide 21 mmol/L (23-31); Chloride 115 mmol/L (98-107); Estimated GFR-MDRD 26; Glucose 89 mg/dL (83-110); Sodium 152 mmol/L (136-145)
[2017-08-28 06:39] LABS: #Lymphocytes 0.7 thou/uL (1.20-3.40); #Monocytes 1.1 thou/uL (0.11-0.59); #Neutrophils 15.5 thou/uL (1.40-6.50); %Eosinophils 0.1 % (0.0-10.0); %Lymphocytes 3.8 % (21.0-51.0); %Monocytes 6.2 % (0.0-10.0); %Neutrophils 89.9 % (42.0-75.0); Hemoglobin 14.8 g/dL (14.0-18.0); MDiff Complete? YES; Macrocytosis SLIGHT = 6-15 cells (100X) (0-5/hpf); Mean Corpuscular HGB CONC 29.5 g/dL (32.0-36.0); Mean Corpuscular Volume 98.4 fl (80.0-94.0); Mean Platelet Volume 9.8 fL (7.4-10.4); PLT Morphology Comment Appears Adequate; Platelet Count 131 thou/uL (130-400); RBC Distribution Width 14.3 % (11.5-14.5); Red Blood Cell (RBC) Count 5.09 mill/uL (4.70-6.10); White Blood Cell (WBC) Count 17.2 thou/uL (4.8-10.8)
[2017-08-28] MEDS: Carvedilol 3.125 MG TAB PO SCH (09:44)
[2017-08-28] MEDS: Enoxaparin Sodium 40 MG/0.4 ML SYRINGE SC SCH (09:46)
[2017-08-28] MEDS: Fluticasone Propionate Nasal Spray 16 gm Bottle NASAL SCH (09:46)
[2017-08-28] MEDS: Folic Acid 1 MG TAB PO SCH (09:46)
[2017-08-28] MEDS: Multivit, Therapeutic 1 TAB PO SCH (09:47)
[2017-08-28] MEDS: Gabapentin 300 MG CAP PO SCH (09:47)
[2017-08-28] MEDS: Spironolactone 25 MG TAB PO SCH (09:48)
[2017-08-28] MEDS: Famotidine/PF 20 mg/2ml Vial SLOW IVP SCH (10:04)
[2017-08-28 11:51] VITALS: BP 96/64; TEMP 97.5
[2017-08-28] MEDS: Lorazepam 2 MG/ML VIAL SLOW IVP PRN (15:28)
--- NOTE | 2017-08-29 14:23 | DIS ---
DATE OF DISCHARGE: 08/28/2017 DISCHARGE DIAGNOSES: 1. Congestive heart failure. 2. Known ischemic cardiomyopathy with ejection fraction of 25%. 3. Hypotension, improved. 4. Dementia. 5. Known history of cerebrovascular accident. 6. Dysphagia. 7. Aspiration with aspiration pneumonia and aspiration pneumonitis. BRIEF SUMMARY OF HOSPITAL COURSE: This is an 86-year-old male with a known history of chronic conges tive heart failure, coronary artery disease and cardiomyopathy with cardiac dysfunction, who initiall y presented with a chief complaint of shortness of breath. Please see the original history and physi zina for full details. The patient was found to have shortness of breath and a component of encephalo lilia. It appears that he has also been experiencing an outpatient decline in his overall function a nd his ability to sustain oral intake. He has required the escalation of his oral diet to puree only prior to admission. On admission, the patient was felt to have an acute on chronic systolic congestive heart failure even t. Cardiology was consulted during this hospitalization and attempts were made on diuresis. However , the patient's diuresis was limited by hypotensive episodes during this hospitalization. He was als o significantly noted to be volume depleted as well and there is concern that with poor p.o. intake, his nutritional status would become problematic. Therefore, a NG tube or Dobhoff tube was placed for the patient and initially he was tolerating tube feeds. However, the patient subsequently had an as piration event, tube feeds were stopped, then the patient self-removed the Dobbhoff tube himself. Al so complication of the attempted diuresis included acute kidney injury with electrolyte abnormalities . Attempts at fluid hydration only worsen his heart failure status. In discussion with the patient's family members including his and children surrounding his aspir ation event despite assisted nutrition by passing the oral tract. Overall, discussed his general con dition and comorbidities, a decision was made to proceed with hospice for the patient. Given the gurinder ient's hemodynamic instability at the time of discharge, he is actually being discharged to general i npatient hospice. Thank you for asking me care for the patient. Questions or concerns, please contact me at [facility].
--- NOTE | 2017-09-01 13:20 | PQF ---
MILENA ROMEROJENNA [id number] CLINICAL DOCUMENTATION CLARIFICATION FORM: POST DISCHARGE Addendum to original discharge summary date: ____ Late entry note date: __ DATE: 09/01/2017 ATTN: DR. BECKER Please exercise your independent, professional judgment in responding to the clarification form. Clinical indicators are provided on the bottom of this form for your review Please check appropriate box(s): [ ] Sepsis due to: (Pna, UTI, gangrenous gall bladder, etc.) Due to: [ ] Device (please specify) [ ] Implant [ ] Graft [ ] Infusion [ ] SIRS due to non-infectious process (please specify etiology) [ ] with organ dysfunction [ ] without organ dysfunction [ ] Severe sepsis with acute organ dysfunction of: (Examples: respiratory failure, encephalopathy, acute kidney failure, other) [ ] Localized infection without sepsis [ x ] Other diagnosis ___Acute metabolic Encephalopathy [ ] Unable to determine In addition, please specify: Present on Admission (POA): [x ] Yes [ ] No [ ] Unable to determine For continuity of documentation, please document condition throughout progress notes and discharge summary. Thank You. CLINICAL INDICATORS - SIGNS / SYMPTOMS / LABS: H&P: METABOLIC ENCEPHALOPATHY / PNA LABS: 08-17 - LACTIC ACID 2.4 - SLIGHTLY ELEVATED ON ADMISSION 08-22 WBC 17.7 - NOT ELEVATED ON ADMISSION - ONLY ELEVATED AFTER 08-22 GAVE SOME PRN NEBS ON 08-23 PULSE: 08-20 90-109 RESP: 08-24 22/ 08-25 28 / 08-26 34 / 08-27 28 08-21 87-100 08-22 87-99 08-23 90-98 08-24 95-107 08-25 62-105 RISK FACTORS: H&P: PNA RECENT DC FROM IN PATIENT REHAB TREATMENTS: MAR: LEVAQUIN IV 08-18 TO 08-24 THEN LEVAQUIN PO CPOE: OXYGEN 2-3 LNC 08-18 TO 08-28 (This form is maintained as a part of the permanent medical record) 2015 [employer] All Rights Reserved Yoko Lira, RADHA, HOSPICE TEAM LEAD-H [email or web address] [phone] MTDD
--- NOTE | 2017-09-16 21:26 | EKG ---
Test Reason : WEAKNESS Blood Pressure : / mmHG Vent. Rate : 080 BPM Atrial Rate : 080 BPM P-R Int : 220 ms QRS Dur : 130 ms QT Int : 394 ms P-R-T Axes : -17 109 142 degrees QTc Int : 454 ms Sinus rhythm with 1st degree A-V block with Premature atrial complexes with Abberant conduction Right bundle branch block Possible Inferior infarct , age undetermined Abnormal ECG Confirmed by ROSEY Hylton, EDDA ([id number]), digital editor KEILA BETH ([id number]) on 09/16/2017 9:25:58 PM Referred By: Confirmed By:EDDA CURRIE M.D.
== END 2017-08-28 18:40 | disposition expired | DRG 291 ==
LOC: ERS 22:16 → 2SE 08-18 02:00 → OBSVTOIN 08-18 12:00 → T4-B 08-20 12:53
PROVIDERS: ADMIT Internal Medicine; ATTEND Internal Medicine
DX: I13.0 Hypertensive heart and chronic kidney disease with heart failure and stage 1 through stage 4 chronic kidney disease, or unspecified chronic kidney disease (principal); J96.01 Acute respiratory failure with hypoxia; J69.0 Pneumonitis due to inhalation of food and vomit; N17.9 Acute kidney failure, unspecified; G93.41 Metabolic encephalopathy; I95.9 Hypotension, unspecified; R13.10 Dysphagia, unspecified; I50.23 Acute on chronic systolic (congestive) heart failure; I24.8 Other forms of acute ischemic heart disease; J98.11 Atelectasis; J44.0 Chronic obstructive pulmonary disease with (acute) lower respiratory infection; J44.1 Chronic obstructive pulmonary disease with (acute) exacerbation; G30.9 Alzheimer's disease, unspecified; F02.80 Dementia in other diseases classified elsewhere, unspecified severity, without behavioral disturbance, psychotic disturbance, mood disturbance, and anxiety; I25.10 Atherosclerotic heart disease of native coronary artery without angina pectoris; N18.3 Chronic kidney disease, stage 3 (moderate); Z79.82 Long term (current) use of aspirin; Z85.46 Personal history of malignant neoplasm of prostate; M19.90 Unspecified osteoarthritis, unspecified site; I25.5 Ischemic cardiomyopathy; Z86.73 Personal history of transient ischemic attack (TIA), and cerebral infarction without residual deficits; Z51.5 Encounter for palliative care; Z87.891 Personal history of nicotine dependence; E87.5 Hyperkalemia; Z66 Do not resuscitate
CPT/HCPCS: 36415; 51701; 71045; 80048; 81003; 82553; 83605; 83880; 84484; 85007; 85025; 85027; 93005; 93798; 94640; 96361; 96374; A4216; G8978-GP-CL; G8979-GP-CJ; G8987-GO-CM; G8988-GO-CM; G8996-GN-CJ; G8996-GN-CN; G8997-GN-CI; G8997-GN-CL; J1630; J1650; J1940; J1956; J2060; J2270; J3010; J3486; J7050; J7620; S0028